=== PATIENT | female | born 1955 | race Caucasian/White ===

== ENCOUNTER 2019-08-09 15:23 | Outpatient (CLI) | payer MEDICARE, SELFPAY ==
--- NOTE | ~2019-08-09 | MM_ITS ---
EXAMINATION: MM screening [facility] BI w marc HISTORY: Screening mammogram TECHNIQUE: Craniocaudal and mediolateral oblique 3-D tomosynthesis images were obtained and synthetic 2-D images were generated. CAD analysis was submitted and interpreted. COMPARISON: 05/26/2018, 09/14/2014 BREAST PARENCHYMAL COMPOSITION: The breasts are almost entirely fatty. FINDINGS: Scattered benign-appearing calcifications are present. There is no evidence of suspicious m ass, calcification, or architectural distortion to suggest malignancy in either breast. There has bee n no suspicious interval change. IMPRESSION: 1. No mammographic evidence of malignancy. 2. Recommend routine screening mammography in one year. BI-RADS Category 2: Benign finding(s). Reviewed, dictated and finalized at location A.
== END 2019-08-09 15:24 | disposition home or self-care (01) ==
LOC: ANHIMG 15:28
PROVIDERS: PCP Internal Medicine; Visit Provider Internal Medicine
DX: Z12.31 Encounter for screening mammogram for malignant neoplasm of breast (principal)
CPT/HCPCS: 77063; 77067

== ENCOUNTER 2020-05-28 08:11 | Outpatient (CLI) | payer MEDICARE, SELFPAY ==
[2020-05-28 08:42] LABS: Basophils Percent Auto 0.5 % (0.2-1.2); Eosinophils Absolute Auto 0.2 K/mm3 (0-0.3); Eosinophils Percent Auto 2.3 % (0-4.4); Hematocrit 44.6 % (37.0-47.0); Hemoglobin 14.5 g/dL (12.0-15.0); Immature Granulocyte Absolute 0.03 K/mm3 (0.00-0.031); Immature Granulocyte Percent A 0.4 % (0-0.5); Lymphocytes Absolute Auto 2.04 K/mm3 (0.9-3.2); Lymphocytes Percent Auto 23.8 % (18.3-44.2); Mean Corpuscular HGB Conc 32.5 g/dl (32-36); Mean Corpuscular Hemoglobin 28.7 pg (26-34); Mean Corpuscular Volume 88.1 fl (80-100); Mean Platelet Volume 10.9 fl (7.4-10.4); Monocytes Absolute Auto 0.6 K/mm3 (0.1-0.6); Monocytes Percent Auto 7.5 % (2.6-8.5); Neutrophils Absolute Auto 5.6 K/mm3 (1.3-6.7); Neutrophils Percent Auto 65.5 % (45.5-73.1); Platelet Count Result 285 k/mm3 (150-375); Red Blood Count 5.06 M/mm3 (4.2-5.4); Red Cell Distribution Width 13.8 % (11.5-14.5); White Blood Count 8.6 K/mm3 (4.5-10.0)
[2020-05-28 08:58] LABS: Alanine Aminotransferase 34 U/L (4-35); Alkaline Phosphatase 100 U/L (38-126); Anion Gap 9 mmol/L (8-16); Aspartate Amino Transferase 36 U/L (14-36); Bilirubin,Total 0.8 mg/dL (0.2-1.3); Blood Urea Nitrogen 22 mg/dL (7-17); Calcium 9.5 mg/dL (8.4-10.2); Carbon Dioxide 32 mmol/L (22-30); Chloride 99 mmol/L (98-107); Estimated Glomerular Filt Rate > 60; Glucose 126 mg/dL (65-105); Potassium 3.6 mmol/L (3.4-5.0); Sodium 140 mmol/L (137-145)
[2020-05-28 09:26] LABS: Creatinine Urine 220.9 mg/dL
[2020-05-28 09:31] LABS: MALB Creatinine Ratio 5.4 mg/g (0-30); Microalbumin Urine Random 11.9 mg/L (0-16.7)
[2020-05-28 09:59] LABS: Hemoglobin A1C 6.2 % (<5.7)
== END 2020-05-28 08:12 | disposition home or self-care (01) ==
PROVIDERS: PCP Internal Medicine; Visit Provider Internal Medicine
DX: E11.51 Type 2 diabetes mellitus with diabetic peripheral angiopathy without gangrene (principal); E11.65 Type 2 diabetes mellitus with hyperglycemia; E78.5 Hyperlipidemia, unspecified; R79.89 Other specified abnormal findings of blood chemistry
CPT/HCPCS: 36415; 80053; 82043; 83036; 85025

== ENCOUNTER 2020-10-24 15:09 | Outpatient (CLI) | payer MEDICARE, SELFPAY ==
--- NOTE | ~2020-10-24 | MM_ITS ---
EXAMINATION: MM screening [facility] BI w [facility] HISTORY: Screening mammogram TECHNIQUE: Craniocaudal and mediolateral oblique 3-D tomosynthesis images were obtained and synthetic 2-D images were generated. CAD analysis was submitted and interpreted. COMPARISON: 08/09/2019, 05/26/2018, 09/14/2014 bilateral digital screening mammogram examinations BREAST PARENCHYMAL COMPOSITION: There are scattered areas of fibroglandular density. FINDINGS: Bilateral benign calcifications. No stable upper outer quadrant right intramammary lymph no de. There is no evidence of suspicious mass, calcification, or architectural distortion to suggest ma lignancy in either breast. There has been no suspicious interval change. IMPRESSION: 1. No mammographic evidence of malignancy. 2. Recommend routine screening mammography in one year. BI-RADS Category 2: Benign finding(s). Reviewed, dictated and finalized at location A.
== END 2020-10-24 15:10 | disposition home or self-care (01) ==
LOC: ANHIMG 15:11
PROVIDERS: PCP Internal Medicine; Visit Provider Internal Medicine
DX: Z12.31 Encounter for screening mammogram for malignant neoplasm of breast (principal)
CPT/HCPCS: 77063; 77067

== ENCOUNTER 2021-06-23 15:19 | Inpatient (IN) | payer MEDICARE, SELFPAY ==
[2021-06-23] VITALS (31 sets, daily range): BP systolic 106–150; BP diastolic 67–96; PULSE 89–112; RESP 16–30; TEMP 36.2; O2SAT 91–100
--- NOTE | ~2021-06-23 | CT_ITS ---
EXAMINATION: CT brain wo con INDICATION: Left lower limb weakness COMPARISON: 10/14/2018 TECHNIQUE: Standard unenhanced head CT. The dose-length product (DLP) was 832.33 mGy-cm. The mA was a djusted according to patient size. Iterative reconstruction technique was employed. FINDINGS: There is no acute intraparenchymal hemorrhage. No evidence of mass lesion. No evidence of a cute infarction. There are old infarcts of the bilateral basal ganglia, bilateral thalami, posterior limb of the right internal capsule, and the left cerebellum There is extensive periventricular and koch bcortical hypodensity probably related to small vessel ischemic disease. There is mild prominence of the sulci and ventricles related to cerebral atrophy. Intracranial calcified cerebral atherosclerosis is noted. There are no extra-axial collections. There is no mass effect or midline shift. Changes in the globes are likely from ocular lens surgery. The visualized sinuses and mastoid air cells are wel l aerated. IMPRESSION: 1. Areas of prior infarction without acute intracranial abnormality. 2. Age related findings. Reviewed, dictated and finalized at location F. USION OPERATOR
--- NOTE | ~2021-06-23 | XR_ITS ---
EXAMINATION: XR hip LT min 3V w AP pelvis EXAM DATE: 06/25/2021 13:12 INDICATION: Left hip pain, blood clot. TECHNIQUE: Left hip frontal, crosstable lateral and 'frog-leg' projections for interpretation. Fronta l projection pelvis. There is no prior study for comparison. FINDINGS: Smooth left hip femoral head contour, no radiographic evidence of avascular necrosis. Ther e is mild symmetric bilateral hip primary osteoarthritis. There are no acute fractures or dislocation s identified. There is no subcutaneous gas. Pelvic calcifications which are most likely phleboliths . There are no radiopaque foreign bodies. IMPRESSION: Mild bilateral hip osteoarthritis. Reviewed, dictated and finalized at location A. NOLOGY METHODOLOGY CONSULTANT
--- NOTE | ~2021-06-23 | XR_ITS ---
EXAMINATION: XR chest 1V portable INDICATION: Weakness and lower limb edema TECHNIQUE: Portable AP chest at 1816 hours COMPARISON: 12/27/2018 FINDINGS: The lungs are free of acute opacities. There is no pleural effusion or pneumothorax. Mild c hronic elevation of the right hemidiaphragm is noted. The cardiomediastinal silhouette is stable. IMPRESSION: 1. No acute cardiopulmonary abnormality. Reviewed, dictated and finalized at location F. EWATER ANALYST
--- NOTE | ~2021-06-23 | US_ITS ---
US renal BI 06/25/2021 10:25 Procedure: Realtime transabdominal ultrasound of the kidneys and bladder. Indication: Acute renal insufficiency Comparison: No prior studies for comparison. Findings: Renal echotexture is normal bilaterally without hydronephrosis, contour deforming mass or r enal calculus. The right kidney measures 10.8 cm and left kidney measures 11.4 cm. Bladder within no rmal limits. Impression: 1: Unremarkable renal ultrasound. No stones, masses or hydronephrosis. Reviewed, dictated and finalized at location B. CT ORIENTED PROGRAMMER Impression: 1: Unremarkable renal ultrasound. No stones, masses or hydronephrosis.
--- NOTE | ~2021-06-23 | CT_ITS ---
EXAMINATION: CTA [facility] DATE: 06/23/2021 18:29 INDICATION: Swelling and color change of the left lower extremity TECHNIQUE: Computed tomographic angiography (CTA) of the left lower extremity was performed with 230 mL Omnipaque-350 intravenous contrast. The dose-length product (DLP) was 1200.83 mGy-cm. Maximum inte nsity projection 3D-reconstructions of the arteries were created by the technologist on a separate The [employer] rkstation. Automated exposure control and iterative reconstruction technique were employed. COMPARISON: None. FINDINGS: PELVIC VASCULATURE: Unremarkable RIGHT LOWER EXTREMITY VASCULATURE: Unremarkable. Although diminutive, there is a three-vessel runoff at the ankle. Finding likely relate s to contrast bolus timing. ADDITIONAL FINDINGS: No pathologically enlarged pelvic lymph nodes are identified. There are phleboliths of the pelvis. Th ere is moderate tricompartmental osteoarthritis of the knee. Mild to moderate osteoarthritis is noted in the ankle and midfoot. IMPRESSION: 1. Unremarkable left lower extremity CTA. Reviewed, dictated and finalized at location F. OR CLINICAL DATA ANALYST
--- NOTE | ~2021-06-23 | US_ITS ---
EXAMINATION:US venous doppler LE LT INDICATION:Left leg swelling and discoloration TECHNIQUE: Multiple grayscale, color flow and Doppler images of the left lower extremity deep venous systems were obtained and reviewed. COMPARISON:12/21/2018 FINDINGS: There is extensive deep venous thrombosis in the left lower extremity veins from the common femoral through the posterior tibial veins. IMPRESSION: 1: Extensive left lower extremity deep venous thrombosis. Dr. Carlos Tirado discussed with Dr. Devante MD at 06/24/2021 08:24 TREASURER. Reviewed, dictated and finalized at location B. SURER IMPRESSION: 1: Extensive left lower extremity deep venous thrombosis. Dr. Carlos Tirado discussed with Dr. Deavnte MD at 06/24/2021 08:24 TREASURER.
[2021-06-23 16:24] LABS: Hematocrit 45.7 % (37.0-47.0); Hemoglobin 14.8 g/dL (12.0-15.0); Mean Corpuscular HGB Conc 32.4 g/dl (32-36); Mean Corpuscular Hemoglobin 29.4 pg (26-34); Mean Corpuscular Volume 90.7 fl (80-100); Mean Platelet Volume 11.4 fl (7.4-10.4); Platelet Count Result 227 k/mm3 (150-375); Red Blood Count 5.04 M/mm3 (4.2-5.4); Red Cell Distribution Width 15.6 % (11.5-14.5); White Blood Count 19.5 K/mm3 (4.5-10.0)
[2021-06-23 16:33] LABS: Alanine Aminotransferase 28 U/L (4-35); Albumin Level 4.6 g/dL (3.5-5.1); Alkaline Phosphatase 130 U/L (38-126); Anion Gap 16 mmol/L (8-16); Aspartate Amino Transferase 35 U/L (14-36); Bilirubin,Total 1.1 mg/dL (0.2-1.3); Blood Urea Nitrogen 24 mg/dL (7-17); Calcium 9.7 mg/dL (8.4-10.2); Carbon Dioxide 23 mmol/L (22-30); Chloride 100 mmol/L (98-107); Estimated CRCL calculation 35 ml/min; Estimated Glomerular Filt Rate 32; Glucose 231 mg/dL (65-110); Potassium 4.1 mmol/L (3.4-5.0); Sodium 139 mmol/L (137-145)
[2021-06-23 16:37] LABS: INR 1.2; Prothrombin Time 14.9 Seconds (11.1-14.7)
[2021-06-23 16:38] LABS: Partial Thromboplastin Time 29.2 SECONDS (22.3-36.8)
--- NOTE | 2021-06-23 16:58 | ED.GENADULT ---
HPI - General Adult General Chief complaint: Altered Mental Status <Sukhwinder Cloud MD - Last Filed: 06/28/21 08:18> Stated complaint: AMS, Diff breathing <Sukhwinder Cloud MD - Last Filed: 06/28/21 08:18> Time Seen by Provider: 06/23/21 15:27 <Sukhwinder Cloud MD - Last Filed: 06/28/21 08:18> History of Present Illness HPI narrative: Patient is a 65-year-old female who presents ER with weakness and leg swelling. Patient reports that she has had increased swelling to her left leg since yesterday morning. It has become purple. There is no pain. She has difficulty bearing weight due to its size and discomfort. No numbness or tingling. Denies history of clots. Patient with strong pulses within the foot. Patient did have a fall onto the ground due to her weakness. She did not strike her head or lose consciousness. Brother present reports patient has had chronic confusion due to multiple strokes in the past. <Sukhwinder Cloud MD - Last Filed: 06/28/21 08:18> Related Data Home medications: Home Medications Medication Instructions Recorded Confirmed aspirin 81 mg tablet,delayed 81 mg PO DAILY 04/27/19 06/25/21 release lancets #50 each 04/27/19 06/25/21 calcium carbonate 600 mg-vitamin 600 cap PO DAILY 11/30/19 06/25/21 D3 62.5 mcg (2,500 unit) capsule atorvastatin [Lipitor] 80 mg PO DAILY 06/25/21 06/25/21 metformin 1,000 mg PO DAILY 06/25/21 06/25/21 mirabegron [Myrbetriq] 25 mg PO DAILY 06/25/21 06/25/21 semaglutide [Rybelsus] 7 mg PO DAILY 06/25/21 06/25/21 <Sukhwinder Cloud MD - Last Filed: 06/28/21 08:18> Allergies/adverse reactions: Allergies Allergy/AdvReac Type Severity Reaction Status Date / Time No Known Allergies Allergy Verified 03/20/21 10:36 <Sukhwinder Cloud MD - Last Filed: 06/28/21 08:18> Review of Systems Review of Systems: All systems reviewed & are unremarkable except as noted in HPI and below <Sukhwinder lCoud MD - Last Filed: 06/28/21 08:18> Constitutional: Constitutional: Denies chills, Denies fever(s) and Reports weakness <Sukhwinder Cloud MD - Last Filed: 06/28/21 08:18> ENT: Denies nasal congestion and Denies sore throat <Sukhwinder Cloud MD - Last Filed: 06/28/21 08:18> Cardiovascular: Cardiovascular: Denies chest pain, Denies rapid heart rate and Denies radiating jaw, neck or arm pain <Sukhwinder Cloud MD - Last Filed: 06/28/21 08:18> Respiratory: Respiratory: Denies cough, Denies dyspnea and Denies wheezing <Sukhwinder Cloud MD - Last Filed: 06/28/21 08:18> Gastrointestinal: Gastrointestinal: Denies abdominal pain, Denies nausea and Denies vomiting <Sukhwinder Cloud MD - Last Filed: 06/28/21 08:18> Musculoskeletal: Musculoskeletal: Denies back pain, Denies arthralgias and Denies muscle cramps <Sukhwinder Cloud MD - Last Filed: 06/28/21 08:18> Comments: LLE swelling <Sukhwinder Cloud MD - Last Filed: 06/28/21 08:18> Neurologic: Denies headache(s), Denies focal weakness, Denies numbness and Reports weakness <Sukhwinder Cloud MD - Last Filed: 06/28/21 08:18> PMFSH Past Medical History Medical History: Medical History (Updated 06/25/21 @ 10:57 by Pino Tobin MD) Cerebrovascular accident (CVA) due to embolism of cerebral artery Depression Hypertension Neuropathy PVD (peripheral vascular disease) Severe obstructive sleep apnea Type 2 diabetes mellitus <Sukhwinder Cloud MD - Last Filed: 06/28/21 08:18> Surgical History Surgical History: Surgical History (Updated 06/23/21 @ 19:02 by Sukhwinder Cloud MD) History of hysterectomy <Sukhwinder Cloud MD - Last Filed: 06/28/21 08:18> Family History Family History: Family History Mother Diabetes mellitus Family history of malignant neoplasm Other Family history of obesity <Sukhwinder Cloud MD - Last Filed: 06/28/21 08:18> Social History Social History:
[2021-06-23] MEDS: SODIUM CHLORIDE 0.9% IV 1,000 ML 999 ML IV CONT (17:00)
[2021-06-23 17:06] LABS: Band Neutrophils Percent 5 % (0-6); Lymphocytes Absolute Manual 0.97 K/mm3 (1.1-4.5); Monocytes Absolute Manual 1.95 K/mm3 (0.1-0.90); Monocytes Percent Manual 10 % (3-9); Neutrophils Absolute Manual 16.57 K/mm3 (1.7-7.2); Neutrophils Percent Manual 80 % (46-73); Total Cells Counted 100
[2021-06-23 17:07] LABS: Anisocytosis 2+ (NORMAL); Platelet Estimate Adequate (Adequate)
[2021-06-23 17:39] LABS: Add Urine Microscopic? YES; Amorphous Sediment Urine Few; Appearance Urine Cloudy (Clear); Bacteria Urine 2+ /hpf; Bilirubin Urine Negative (Negative); Blood Urine 1+ (Negative); Color Urine Amber (Yellow); Glucose Urine UA Negative (Negative); Ketones Urine Trace mg/dL (Negative); Leukocyte Esterase Ur 1+ LEU/UL (Negative); Mucus Urine Rare /lpf; Nitrate Urine Negative (Negative); Protein Urine 1+ mg/dL (Negative); RBC Urine 21-50 /hpf (0-2); Specific Grav Ur 1.027 (1.001-1.035); Squamous Epithelial Cell Urine Many /hpf (Few); WBC Urine 0-3 /hpf
[2021-06-23 17:49] LABS: Creatine Kinase 109 U/L (30-135); D Dimer > 20.00 ug/mL (<0.48)
[2021-06-23] MEDS: HEPARIN SODIUM 5,000 UNITS/ML VIAL 5500 UNITS IV PUSH (19:42)
[2021-06-23] MEDS: HEPARIN SOD/D5W 100 UNITS/ML 25,000 UNITS/250 ML BAG 13 UNITS IV CONT (19:45)
--- NOTE | 2021-06-23 20:33 | PC.NURSE ---
Vicky with [facility] called...there are no beds available at this time. Will put patient on waitlist and still reaching out to Vascular Surgery...will call back when they reach doctor.
[2021-06-23 20:40] LABS: SARS-CoV-2 RNA PCR Negative
--- NOTE | 2021-06-23 21:07 | ECG_ITS ---
Measurements Intervals [place] Rate: 96 P: 47 FL: 151 QRS: 9 QRSD: 91 T: 59 QT: 374 QTc: 474 Interpretive Statements SINUS RHYTHM CONSIDER INFERIOR INFARCT, AGE INDETERMINATE BORDERLINE ST-T WAVE ABNORMALITY- HIGH LATERAL LEADS ABNORMAL ECG Electronically Signed On 06-24-2021 6:22:52 BOAT RIGGER by Soy Vuong D.O.
--- NOTE | 2021-06-23 21:24 | PM.IMHP ---
H&P: HPI History of Present Illness Date/Time: 06/23/21 21:24 Chief Complaint: LEFT LEG SWELLING PMFSH Past Medical History Medical History (Updated 06/23/21 @ 19:59 by Sukhwinder Cloud MD) Cerebrovascular accident (CVA) due to embolism of cerebral artery Depression Hypertension Neuropathy PVD (peripheral vascular disease) Severe obstructive sleep apnea Type 2 diabetes mellitus Surgical History Surgical History (Updated 06/23/21 @ 19:02 by Sukhwinder Cloud MD) History of hysterectomy Family History Family History Mother Diabetes mellitus Family history of malignant neoplasm Other Family history of obesity Social History Social History (Updated 03/20/21 @ 10:36 by Chery Kelley CNA) Smoking status: Never smoker Second hand tobacco smoke exposure: No Alcohol intake: never Substance use: never Substance use type: does not use Meds Home Medications and Allergies Home Medications Medication Instructions Recorded Confirmed Type aspirin 81 mg tablet,delayed 81 mg PO DAILY 04/27/19 03/20/21 History release lancets #50 each 04/27/19 03/20/21 History calcium carbonate 600 mg-vitamin cap PO 11/30/19 03/20/21 History D3 62.5 mcg (2,500 unit) capsule metformin 500 mg tablet See Rx Instructions .ROUTE 02/25/21 03/20/21 Rx .COMPLEX #180 tablet semaglutide 7 mg tablet See Rx Instructions .ROUTE 04/01/21 Rx .COMPLEX #90 tablet blood sugar diagnostic #100 ea 04/08/21 Rx atorvastatin 80 mg tablet See Rx Instructions .ROUTE 04/23/21 Rx .COMPLEX #90 tablet mirabegron 25 mg tablet,extended See Rx Instructions .ROUTE 05/09/21 Rx release 24 hr .COMPLEX #90 tablet Allergies Allergy/AdvReac Type Severity Reaction Status Date / Time No Known Allergies Allergy Verified 03/20/21 10:36 Vital Signs Vital Signs - 24 hr 06/23/21 15:23 06/23/21 15:37 06/23/21 15:45 Temperature 97.2 F L Pulse Rate 112 H 105 H 101 H Respiratory Rate 20 30 H 25 H Blood Pressure 121/96 H Pulse Oximetry 100 100 100 06/23/21 15:46 06/23/21 16:00 06/23/21 16:01 Temperature Pulse Rate 100 96 94 Respiratory Rate 20 23 H 17 Blood Pressure 109/77 114/67 Pulse Oximetry 100 100 100 06/23/21 16:15 06/23/21 16:16 06/23/21 16:30 Temperature Pulse Rate 93 93 93 Respiratory Rate 22 H 20 20 Blood Pressure 106/85 119/87 Pulse Oximetry 100 100 06/23/21 16:31 06/23/21 16:45 06/23/21 16:46 Temperature Pulse Rate 95 93 92 Respiratory Rate 21 H 22 H 18 Blood Pressure 120/78 Pulse Oximetry 100 99 100 06/23/21 17:00 06/23/21 17:01 06/23/21 17:15 Temperature Pulse Rate 93 92 90 Respiratory Rate 20 26 H 25 H Blood Pressure 135/81 Pulse Oximetry 100 100 06/23/21 17:16 06/23/21 17:30 06/23/21 17:31 Temperature Pulse Rate 95 89 94 Respiratory Rate 20 23 H 22 H Blood Pressure 127/67 131/82 Pulse Oximetry 100 91 100 06/23/21 18:21 06/23/21 18:22 06/23/21 18:30 Temperature Pulse Rate 94 96 Respiratory Rate 20 21 H Blood Pressure 125/91 H Pulse Oximetry 100 100 100 06/23/21 18:31 06/23/21 18:45 06/23/21 18:46 Temperature Pulse Rate 94 95 95 Respiratory Rate 22 H 21 H 21 H Blood Pressure 147/84 H 150/84 H Pulse Oximetry 100 98 99 06/23/21 19:00 06/23/21 19:01 06/23/21 19:15 Temperature Pulse Rate 97 97 104 H Respiratory Rate 21 H 19 25 H Blood Pressure 135/85 Pulse Oximetry 97 98 92 06/23/21 19:16 06/23/21 19:27 Temperature Pulse Rate 100 101 H Respiratory Rate 18 16 Blood Pressure 137/77 137/77 Pulse Oximetry 97 100 H&P: Results Labs Labs: Short CBC 06/23/21 Range/Units 16:12 WBC 19.5 H (4.5-10.0) K/mm3 Hgb 14.8 (12.0-15.0) g/dL Hct 45.7 (37.0-47.0) % Plt Count 227 (150-375) k/mm3 BMP 06/23/21 16:12 Sodium 139 Potassium 4.1 Chloride 100 Carbon Dioxide 23 BUN 24 H Creatinine 1.60 H Glucose 231 H
--- NOTE | 2021-06-23 21:39 | PC.NURSE ---
PATIENT HAS BEEN ACCEPTED AT BOTH [facility] AND [facility]. Both facilities are currently at capacity. Patient is on waitlist at both. [facility] is waiting for additional information/updates on condition before acceptance or placing on waitlist.
--- NOTE | 2021-06-23 21:44 | PC.NURSE ---
6 kaylee wrap left leg from feet to hip left leg elevated pedal pules + post kaylee wrap. large amount of vomiting bedding changed
[2021-06-23 22:10] LABS: Troponin I 0.014 ng/mL (0.000-0.034)
[2021-06-23] MEDS: SODIUM CHLORIDE 0.9% IV 1,000 ML 125 ML IV CONT (23:33)
[2021-06-24] VITALS (8 sets, daily range): BP systolic 119–143; BP diastolic 56–93; PULSE 82–95; RESP 12–20; TEMP 36.3–36.6; O2SAT 97–100; BMI 32.1
--- NOTE | 2021-06-24 01:38 | PC.NURSE ---
pt alert and oriented x 3, bedding and adult diaper dry
[2021-06-24 02:43] LABS: Partial Thromboplastin Time > 200.0 SECONDS (22.3-36.8)
--- NOTE | 2021-06-24 02:48 | PC.NURSE ---
ALEXIA TAYLOR - HOLD HEPARIN X 6 HOURS AND THEN REDRAW PTT @ 0845.
--- NOTE | 2021-06-24 02:51 | PC.NURSE ---
hep drip stopped
--- NOTE | 2021-06-24 05:51 | PC.NURSE ---
pt incontinent urine adult diaper changed bedding changed c/o some pain left pain meds offered declined
[2021-06-24 08:57] LABS: Basophils Absolute Auto 0.1 K/mm3 (0.0-0.1); Basophils Percent Auto 0.4 % (0.2-1.2); Hematocrit 38.9 % (37.0-47.0); Hemoglobin 12.8 g/dL (12.0-15.0); Immature Granulocyte Absolute 0.08 K/mm3 (0.00-0.031); Immature Granulocyte Percent A 0.6 % (0-0.5); Lymphocytes Absolute Auto 1.59 K/mm3 (0.9-3.2); Lymphocytes Percent Auto 11.1 % (18.3-44.2); Mean Corpuscular HGB Conc 32.9 g/dl (32-36); Mean Corpuscular Hemoglobin 28.8 pg (26-34); Mean Corpuscular Volume 87.6 fl (80-100); Mean Platelet Volume 11.9 fl (7.4-10.4); Monocytes Absolute Auto 1.1 K/mm3 (0.1-0.6); Monocytes Percent Auto 7.8 % (2.6-8.5); Neutrophils Absolute Auto 11.5 K/mm3 (1.3-6.7); Neutrophils Percent Auto 80.1 % (45.5-73.1); Platelet Count Result 198 k/mm3 (150-375); Red Blood Count 4.44 M/mm3 (4.2-5.4); Red Cell Distribution Width 15.9 % (11.5-14.5); White Blood Count 14.3 K/mm3 (4.5-10.0)
--- NOTE | 2021-06-24 09:28 | PC.NURSE ---
no bed at [facility]
[2021-06-24 10:03] LABS: Partial Thromboplastin Time 34.3 SECONDS (22.3-36.8)
[2021-06-24] MEDS: SODIUM CHLORIDE 0.9% IV 1,000 ML 125 ML IV CONT ×2 (10:30→20:15)
[2021-06-24] MEDS: HEPARIN SODIUM 5,000 UNITS/ML VIAL 5500 UNITS IV PUSH (10:34)
--- NOTE | 2021-06-24 12:46 | PC.NURSE ---
spoke with patient's brother, Omar Sanderson, update given. [phone] brother's number. would like to be contacted with plan of care when available
--- NOTE | 2021-06-24 15:43 | PM.IMPN ---
Progress Note: A&P Assessment and Plan (1) Phlegmasia cerulea dolens of left lower extremity: Code(s): I80.202 - Phlebitis and thrombophlebitis of unspecified deep vessels of left lower extremity Status: Acute Assessment and Plan: Patient presents with left lower extremity edema and discoloration. CTA of the left lower extremity showed no acute findings. Left lower extremity venous Doppler showed extensive DVT. No obvious risk factors. Patient was started on heparin drip. Case was discussed with vascular surgery and patient has been accepted at 2 facilities but we are awaiting bed availability. WBC better adn felt related to demargination then from acute infection. Continue heparin drip. Continue supportive care. Strict bedrest. Continue to monitor. Follow HH. (2) MEREDITH (acute kidney injury): Code(s): N17.9 - Acute kidney failure, unspecified Status: Acute Assessment and Plan: BUN 24 and creatinine 1.6 on admission. Normal baseline renal function. She is not on diuretics at home. She has received contrast since admission. TCK normal. Currently on IV fluids. Will repeat renal function. Cr 1.5 now. Will continue to monitor. Check renal US. (3) Severe obstructive sleep apnea: Code(s): G47.33 - Obstructive sleep apnea (adult) (pediatric) Status: Acute Assessment and Plan: Stable. Continue CPAP at night and with naps. (4) PVD (peripheral vascular disease): Code(s): I73.9 - Peripheral vascular disease, unspecified Status: Acute Assessment and Plan: Left lower extremity CTA showed no significant arterial disease. Continue to follow. Resume aspirin and statin. (5) Cerebrovascular accident (CVA) due to embolism of cerebral artery: Code(s): I63.40 - Cerebral infarction due to embolism of unspecified cerebral artery Status: Acute Assessment and Plan: Patient has a history of CVA. CT of the brain performed here related to the left lower extremity weakness and this shows areas of prior infarct without acute findings. Continue aspirin and Lipitor. (6) Type 2 diabetes mellitus: Qualifiers: Diabetes mellitus complication status: without complication Diabetes mellitus intermediate manager insulin use: without alf use Qualified Code(s): E11.9 - Type 2 diabetes mellitus without complications Code(s): E11.9 - Type 2 diabetes mellitus without complications Status: Acute Assessment and Plan: The patient's blood glucose was reviewed on 06/24 not many values to review. Will start AccuCheks covering with sliding scale. Hypoglycemia protocol will be available as needed. Continue to hold semaglutide Subjective Date/time seen: 06/24/21 15:43 Interval history: 65yo female with hx of CVA, DM, HTN and ESTHELA here for LLE edema and found to have extensive DVT. Patient denies CP or SOB. Left leg edema noted about 2 days ago. UTD on colonoscopy and mammograms (both done last year). No prolonged bedrest or recent surgeries. No hx of VTE. No pleuritc chest pain. Exam Narrative: AF 97.2 119/77 95 12 97% ra Gen - NARD Chest - CTA bilaterally, nml RR CV - RRR S1/S2 Abd - Soft, NT/ND, Positive BS Ext - nonpitting extensive LLE edema with dusky distal LE with purplish discoloration. Left foot is cold with cap refill 4-5sec but 2+ DP pulse to the left foot. Neuro - Alert and oriented x3 (not the Radha name). Psych - Nml mood but odd affect Skin - As above otherwise warm and dry Objective Data Vital Signs Vital Signs: Vital Signs - 24 hr 06/23/21 15:45 06/23/21 15:46 06/23/21 16:00 Pulse Rate 101 H 100 96 Respiratory Rate 25 H 20 23 H Blood Pressure 109/77 Pulse Oximetry 100 100 100 06/23/21 16:01 06/23/21 16:15 06/23/21 16:16 Pulse Rate 94 93 93 Respiratory Rate 17 22 H 20 Blood Pressure 114/67 106/85 Pulse Oximetry 100 100 06/23/21 16:30 06/23/21 16:31 06/23/21 16:45 Pulse Rate
[2021-06-24 17:00] LABS: Albumin Level 3.8 g/dL (3.5-5.1); Anion Gap 7 mmol/L (8-16); Blood Urea Nitrogen 32 mg/dL (7-17); Calcium 8.6 mg/dL (8.4-10.2); Carbon Dioxide 26 mmol/L (22-30); Chloride 104 mmol/L (98-107); Estimated CRCL calculation 37 ml/min; Estimated Glomerular Filt Rate 35; Glucose 154 mg/dL (65-110); Phosphorus 3.9 mg/dL (2.5-4.5); Potassium 3.9 mmol/L (3.4-5.0); Sodium 137 mmol/L (137-145)
[2021-06-24 17:21] LABS: Troponin I 0.062 ng/mL (0.000-0.034)
[2021-06-24 17:25] LABS: Partial Thromboplastin Time > 200.0 SECONDS (22.3-36.8)
--- NOTE | 2021-06-24 17:40 | ECG_ITS ---
Measurements Intervals [place] Rate: 84 P: 46 CA: 158 QRS: 7 QRSD: 82 T: 116 QT: 363 QTc: 431 Interpretive Statements SINUS RHYTHM CONSIDER INFERIOR INFARCT, AGE INDETERMINATE BORDERLINE ST-T WAVE ABNORMALITY- LAT/HIGH LAT LEADS BASELINE ARTIFACT- V1, V3 ABNORMAL ECG Electronically Signed On 06-24-2021 21:07:22 BLACKSMITH HELPER by Soy Vuong D.O.
[2021-06-24] MEDS: ASPIRIN 81 MG CHEWABLE TABLET PO (17:41)
[2021-06-24 17:49] LABS: Glucose Point of Care 134 mg/dl (65-105)
--- NOTE | 2021-06-24 20:36 | ADMGEN ---
This patient, Chio Anand, was admitted to IMU Room 207-01. Patient/family oriented to hospital policies and general routines including ID bracelet, bed and alarms, visiting hours, pain management, procedures, bathroom and other care routines, personal items, smoking policy, room service/diet, and visiting hours. Information on how to activate the Rapid Response Team has been discussed. Patient/Family are encouraged to report perceived risks to care and to ask questions if they do not understand what they are told or what they should do.
[2021-06-24 21:01] LABS: Troponin I 0.053 ng/mL (0.000-0.034)
[2021-06-24 21:08] LABS: Glucose Point of Care 166 mg/dl (65-105)
--- NOTE | 2021-06-24 21:39 | PCRCNOTE ---
RT asked Pt. about CPAP and pt. refused the CPAP tonight
[2021-06-24] MEDS: HEPARIN SOD/D5W 100 UNITS/ML 25,000 UNITS/250 ML BAG 14 UNITS IV CONT (22:54)
[2021-06-25] VITALS (13 sets, daily range): BP systolic 126–136; BP diastolic 63–72; PULSE 58–89; RESP 18–20; TEMP 36.4–36.9; O2SAT 97–99
--- NOTE | 2021-06-25 | ECHO_ITS ---
Patient Info Name: Chio Anand Age: 65 years : 1955 Gender: Female Ht: 64 in Wt: 187 lbs BSA: 1.99 m2 HR: 81 bpm BP: 134 / 63 mmHg Heart Rhythm: Sinus Rhythm Technical Quality: Fair Exam Date: 06/25/2021 11:36 AM Exam Location: [facility] Patient Status: Inpatient Admit Date: 06/24/2021 Staff Ordering Physician: Pino Tobin MD Forming Machine Operator: Milena Cui RDCS Attending Provider: Vick Whitt MD Exam Type: CA echo doppler color flow Study Info Indications - eleveted trop, dvt Complete two-dimensional, color flow and Doppler transthoracic echocardiogram is performed. Summary 1. Complete two-dimensional, color flow and Doppler transthoracic echocardiogram is performed. 2. Left ventricular chamber dimension is normal. 3. Left ventricular systolic function is normal, estimated at 65-70%. 4. There is mildly increased left ventricular wall thickness. 5. The left ventricular diastolic function is grade I diastolic dysfunction. 6. E/e' 6 is not elevated. 7. There is mild aortic valve sclerosis. 8. The mitral valve has moderately calcified annulus. 9. No pulmonary hypertension, estimated pulmonary arterial systolic pressure is 21 mmHg. Left Ventricle E/e' 6 is not elevated. Left ventricular chamber dimension is normal. Left ventricular systolic function is normal, estimated at 65-70%. There is mildly increased left ventricular wall thickness. The left ventricular diastolic function is grade I diastolic dysfunction. Right Ventricle Right ventricular chamber dimension is normal. Right ventricular systolic function is normal. Left Atria Left atrial chamber dimension is normal. Right Atria Right atrial chamber dimension is normal. Aortic Valve The aortic valve is trileaflet. There is mild aortic valve sclerosis. There is no aortic valve stenosis. There is no aortic valve regurgitation. Pulmonic Valve There is no pulmonic regurgitation. Mitral Valve The mitral valve has moderately calcified annulus. There is no mitral valve stenosis. There is no mitral valve regurgitation. Tricuspid Valve There is no tricuspid valve regurgitation. No pulmonary hypertension, estimated pulmonary arterial systolic pressure is 21 mmHg. Pericardium/Pleural There is no pericardial effusion. Inferior Vena Cava Normal inferior vena cava with >50% collapse upon inspiration consistent with normal right atrial pressure, 5 mmHg. Aorta The aortic root size at the sinus of Valsalva is normal. Left Ventricular Outflow Tract Name Value Normal LVOT 2D LVOT Diameter 2.0 cm LVOT Doppler LVOT Peak Gradient 3 mmHg LVOT Mean Gradient 1 mmHg LVOT VTI 14 cm LVOT VTI/AV VTI Ratio 0.7 LVOT Stroke Volume 45 ml LVOT CO 3.8 l/min LVOT CI 1.9 l/min/m2 Pulmonic Valve Name
[2021-06-25 01:34] LABS: Partial Thromboplastin Time > 200.0 SECONDS (22.3-36.8)
[2021-06-25] MEDS: ASPIRIN 81 MG CHEWABLE TABLET PO (08:07)
[2021-06-25] MEDS: ATORVASTATIN 40 MG TABLET 80 MG PO (08:07)
[2021-06-25 08:08] LABS: Glucose Point of Care 144 mg/dl (65-105)
--- NOTE | 2021-06-25 08:19 | PM.IMPN ---
Progress Note: A&P Assessment and Plan (1) Phlegmasia cerulea dolens of left lower extremity: Code(s): I80.202 - Phlebitis and thrombophlebitis of unspecified deep vessels of left lower extremity Status: Acute Assessment and Plan: Patient presents with left lower extremity edema and discoloration. CTA of the left lower extremity showed no acute findings. Left lower extremity venous Doppler showed extensive DVT. No obvious risk factors. Patient was started on heparin drip. Case was discussed with vascular surgery and patient has been accepted at 2 facilities but we are awaiting bed availability. WBC better again and felt related to demargination then from acute infection. Plt count noted (227K -> 198K -> 149K). Continue heparin drip for now. Continue supportive care. Strict bedrest. Continue to monitor. Follow HH and plt count. Check left hip xray. (2) MEREDITH (acute kidney injury): Code(s): N17.9 - Acute kidney failure, unspecified Status: Acute Assessment and Plan: BUN 24 and creatinine 1.6 on admission. Normal baseline renal function. She is not on diuretics at home. She has received contrast since admission. TCK normal. She remains on IV fluids. Renal US normal. Cr now normal. She is eating and drinking well so will stop IV fluids. Follow (3) Elevated troponin: Code(s): R77.8 - Other specified abnormalities of plasma proteins Status: Acute Assessment and Plan: Trop peaked at 0.062 before trending down. EKG on admission showing borderline ST-T wave changes high lateral leads. Repeat EKG showing similar findings and overall no change from a 2019 EKG. No complains of chest pain or pleuritic symptoms to suggest PE but this is the most likely etiology. Unlikely ACS. Consider related to the MEREDITH as well. Check Echo. (4) Severe obstructive sleep apnea: Code(s): G47.33 - Obstructive sleep apnea (adult) (pediatric) Status: Acute Assessment and Plan: Stable. Continue CPAP at night and with naps. (5) PVD (peripheral vascular disease): Code(s): I73.9 - Peripheral vascular disease, unspecified Status: Acute Assessment and Plan: Left lower extremity CTA showed no significant arterial disease. Continue to follow. Continue aspirin and statin. (6) Cerebrovascular accident (CVA) due to embolism of cerebral artery: Code(s): I63.40 - Cerebral infarction due to embolism of unspecified cerebral artery Status: Acute Assessment and Plan: Patient has a history of CVA. CT of the brain was performed here due to the left lower extremity weakness and this shows areas of prior infarct without acute findings. Continue aspirin and Lipitor. (7) Type 2 diabetes mellitus: Qualifiers: Diabetes mellitus complication status: without complication Diabetes mellitus extermination supervisor insulin use: without extermination supervisor use Qualified Code(s): E11.9 - Type 2 diabetes mellitus without complications Code(s): E11.9 - Type 2 diabetes mellitus without complications Status: Acute Assessment and Plan: A1c 5.5. The patient's blood glucose was reviewed on 06/25. Glucose remains well controlled. Continue AccuCheks covering with sliding scale. Hypoglycemia protocol available as needed. Continue current medications. Continue to hold semaglutide for now. Subjective Date/time seen: 06/25/21 08:19 Interval history: 65yo female with hx of CVA, DM, HTN and ESTHELA here for LLE edema and found to have extensive DVT. Patient states her left leg is numb and still very weak. She denies any chest pain or shortness of breath. No pleuritic chest pain. No back pain. No nausea or vomiting. Eating okay. She did states that she fell prior to admission. Exam Narrative: AF 98.0 134/63 81 18 97% ra Gen - NARD Chest - CTA bilaterally, nml RR CV - RRR S1/S2. Tele showing occasional PVCs. Abd - Soft, NT/ND, Positive BS Ext - nonpitti
[2021-06-25 09:53] LABS: Basophils Absolute Auto 0.1 K/mm3 (0.0-0.1); Basophils Percent Auto 0.7 % (0.2-1.2); Eosinophils Absolute Auto 0.1 K/mm3 (0-0.3); Eosinophils Percent Auto 0.9 % (0-4.4); Hematocrit 35.1 % (37.0-47.0); Hemoglobin 11.9 g/dL (12.0-15.0); Immature Granulocyte Absolute 0.03 K/mm3 (0.00-0.031); Immature Granulocyte Percent A 0.3 % (0-0.5); Lymphocytes Absolute Auto 1.45 K/mm3 (0.9-3.2); Lymphocytes Percent Auto 12.5 % (18.3-44.2); Mean Corpuscular HGB Conc 33.9 g/dl (32-36); Mean Corpuscular Hemoglobin 30.1 pg (26-34); Mean Corpuscular Volume 88.9 fl (80-100); Mean Platelet Volume 12.1 fl (7.4-10.4); Monocytes Absolute Auto 0.9 K/mm3 (0.1-0.6); Monocytes Percent Auto 7.4 % (2.6-8.5); Neutrophils Absolute Auto 9.1 K/mm3 (1.3-6.7); Neutrophils Percent Auto 78.2 % (45.5-73.1); Platelet Count Result 149 k/mm3 (150-375); Red Blood Count 3.95 M/mm3 (4.2-5.4); Red Cell Distribution Width 15.8 % (11.5-14.5); White Blood Count 11.6 K/mm3 (4.5-10.0)
[2021-06-25 10:05] LABS: Albumin Level 3.5 g/dL (3.5-5.1); Anion Gap 12 mmol/L (8-16); Blood Urea Nitrogen 27 mg/dL (7-17); Calcium 8.5 mg/dL (8.4-10.2); Carbon Dioxide 21 mmol/L (22-30); Chloride 103 mmol/L (98-107); Estimated CRCL calculation 51 ml/min; Estimated Glomerular Filt Rate 55; Glucose 139 mg/dL (65-110); Magnesium 1.7 mg/dL (1.6-2.3); Potassium 3.5 mmol/L (3.4-5.0); Sodium 136 mmol/L (137-145)
--- NOTE | 2021-06-25 10:39 | PC.NURSE ---
PTT time for 0845. drawn at 0909. No results found at 1039 so call placed to Lab. Spoke to rep in blood bank who checked result advised was critical and would have lab call. Call made at 1039 to report PTT was critical.
[2021-06-25 10:40] LABS: Partial Thromboplastin Time 190.3 SECONDS (22.3-36.8)
[2021-06-25 11:05] LABS: Hemoglobin A1C 5.5 % (<5.7)
[2021-06-25 12:32] LABS: Glucose Point of Care 154 mg/dl (65-105)
[2021-06-25 16:55] LABS: Glucose Point of Care 145 mg/dl (65-105)
[2021-06-25 19:34] LABS: Partial Thromboplastin Time 94.9 SECONDS (22.3-36.8)
[2021-06-25 20:57] LABS: Glucose Point of Care 152 mg/dl (65-105)
[2021-06-26] VITALS (14 sets, daily range): BP systolic 127–139; BP diastolic 62–93; PULSE 7–86; RESP 18–20; TEMP 36.2–36.6; O2SAT 95–100
[2021-06-26] MEDS: HEPARIN SOD/D5W 100 UNITS/ML 25,000 UNITS/250 ML BAG 10 UNITS IV CONT (00:48)
[2021-06-26 05:18] LABS: Basophils Absolute Auto 0.1 K/mm3 (0.0-0.1); Basophils Percent Auto 0.5 % (0.2-1.2); Eosinophils Absolute Auto 0.2 K/mm3 (0-0.3); Immature Granulocyte Absolute 0.02 K/mm3 (0.00-0.031); Immature Granulocyte Percent A 0.2 % (0-0.5); Lymphocytes Absolute Auto 2.03 K/mm3 (0.9-3.2); Lymphocytes Percent Auto 21.8 % (18.3-44.2); Mean Corpuscular HGB Conc 33.3 g/dl (32-36); Mean Corpuscular Hemoglobin 29.6 pg (26-34); Mean Corpuscular Volume 88.7 fl (80-100); Mean Platelet Volume 11.8 fl (7.4-10.4); Monocytes Absolute Auto 0.7 K/mm3 (0.1-0.6); Monocytes Percent Auto 7.7 % (2.6-8.5); Neutrophils Absolute Auto 6.3 K/mm3 (1.3-6.7); Neutrophils Percent Auto 67.8 % (45.5-73.1); Platelet Count Result 150 k/mm3 (150-375); Red Blood Count 3.72 M/mm3 (4.2-5.4); Red Cell Distribution Width 15.7 % (11.5-14.5); White Blood Count 9.3 K/mm3 (4.5-10.0)
[2021-06-26 05:32] LABS: Anion Gap 7 mmol/L (8-16); Blood Urea Nitrogen 23 mg/dL (7-17); Calcium 8.8 mg/dL (8.4-10.2); Carbon Dioxide 23 mmol/L (22-30); Chloride 105 mmol/L (98-107); Estimated CRCL calculation 63 ml/min; Estimated Glomerular Filt Rate > 60; Glucose 130 mg/dL (65-110); Magnesium 1.8 mg/dL (1.6-2.3); Potassium 3.6 mmol/L (3.4-5.0); Sodium 135 mmol/L (137-145)
[2021-06-26 07:44] LABS: Partial Thromboplastin Time 100.2 SECONDS (22.3-36.8)
[2021-06-26] MEDS: ASPIRIN 81 MG CHEWABLE TABLET PO (08:26)
[2021-06-26] MEDS: ATORVASTATIN 40 MG TABLET 80 MG PO (08:26)
[2021-06-26 08:28] LABS: Glucose Point of Care 130 mg/dl (65-105)
--- NOTE | 2021-06-26 12:16 | PM.IMPN ---
Progress Note: A&P Assessment and Plan (1) Phlegmasia cerulea dolens of left lower extremity: Code(s): I80.202 - Phlebitis and thrombophlebitis of unspecified deep vessels of left lower extremity Status: Acute Assessment and Plan: Patient with an unprovoked DVT LLE. Patient presents with left lower extremity edema and discoloration. CTA of the left lower extremity showed no acute findings. Left lower extremity venous Doppler showed extensive DVT. No obvious risk factors (UTD on colonoscopy and mammograms). Patient was started on heparin drip. Case was discussed with vascular surgery and patient has been accepted at 2 facilities but we are awaiting bed availability. WBC normal now and felt the leukocytosis related to demargination then from acute infection. Plt count dropping (227K -> 198K -> 149K -> 150K) but probably from consumption. Pelvic xray showing no fracture. Clinically and symptomatically better. Continue heparin drip. Continue supportive care. Strict bedrest. Elevated LLE. Continue to monitor. Follow HH and plt count. (2) MEREDITH (acute kidney injury): Code(s): N17.9 - Acute kidney failure, unspecified Status: Acute Assessment and Plan: BUN 24 and creatinine 1.6 on admission. Normal baseline renal function. She is not on diuretics at home. She has received contrast since admission. TCK normal. She was on IV fluids but stopped once Cr improved and when eating and drinking normally. Renal US normal. Cr remains normal. Resolved. Follow. (3) Elevated troponin: Code(s): R77.8 - Other specified abnormalities of plasma proteins Status: Acute Assessment and Plan: Trop peaked at 0.062 before trending down. EKG on admission showing borderline ST-T wave changes high lateral leads. Repeat EKG showing similar findings and overall no change from a 2019 EKG. No complains of chest pain or pleuritic symptoms to suggest PE but this is the most likely etiology. Tele showing probable MAT; related to PE? or electrolyte changes? Unlikely elevated Troponins ACS. Replace potassium and Mag. Consider related to the MEREDITH as well. Continue ASA and Lipitor. Echo showing EF 65-70% with Grade I diastolic dysfunction but normal RA/RV and normal RA pressure: no pulmonary HTN. If she does have PE, probably low clot burden since asymptomatic, not hypoxic and no concerning findings on Echo. Overall, no change in treatment plan. Consider CTA chest before discharge but would treat as if PE. (4) Severe obstructive sleep apnea: Code(s): G47.33 - Obstructive sleep apnea (adult) (pediatric) Status: Acute Assessment and Plan: Stable. Patient refusing CPAP at night. Continue CPAP at night and with naps as patient allows. (5) PVD (peripheral vascular disease): Code(s): I73.9 - Peripheral vascular disease, unspecified Status: Acute Assessment and Plan: Left lower extremity CTA showed no significant arterial disease. Continue to follow. Continue aspirin and statin. (6) Cerebrovascular accident (CVA) due to embolism of cerebral artery: Code(s): I63.40 - Cerebral infarction due to embolism of unspecified cerebral artery Status: Acute Assessment and Plan: Patient has a history of CVA. CT of the brain was performed here due to the left lower extremity weakness and this shows areas of prior infarct without acute findings. Continue aspirin and Lipitor. (7) Type 2 diabetes mellitus: Qualifiers: Diabetes mellitus complication status: without complication Diabetes mellitus regional intermodal truck driver insulin use: without regional intermodal truck driver use Qualified Code(s): E11.9 - Type 2 diabetes mellitus without complications Code(s): E11.9 - Type 2 diabetes mellitus without complications Status: Acute Assessment and Plan: A1c 5.5. The patient's blood glucose was reviewed on 06/26 Glucose remains well controlled. Continue AccuCheks covering with sliding scale.
[2021-06-26 12:47] LABS: Glucose Point of Care 125 mg/dl (65-105)
[2021-06-26] MEDS: POTASSIUM CHLORIDE 20 MEQ TABLET 40 MEQ PO (13:57)
[2021-06-26] MEDS: MAGNESIUM SULF 2 GM/WATER 50ML 2 GM/50 ML BAG IVPB (13:58)
[2021-06-26 15:46] LABS: Glucose Point of Care 126 mg/dl (65-105)
[2021-06-26 20:10] LABS: Glucose Point of Care 144 mg/dl (65-105)
[2021-06-27] VITALS (13 sets, daily range): BP systolic 130–165; BP diastolic 67–93; PULSE 75–95; RESP 16–20; TEMP 36.2–37.2; O2SAT 95–100
[2021-06-27 05:33] LABS: Basophils Percent Auto 0.5 % (0.2-1.2); Eosinophils Absolute Auto 0.2 K/mm3 (0-0.3); Eosinophils Percent Auto 2.8 % (0-4.4); Hematocrit 31.9 % (37.0-47.0); Hemoglobin 10.5 g/dL (12.0-15.0); Immature Granulocyte Absolute 0.03 K/mm3 (0.00-0.031); Immature Granulocyte Percent A 0.4 % (0-0.5); Lymphocytes Absolute Auto 2.04 K/mm3 (0.9-3.2); Lymphocytes Percent Auto 25.7 % (18.3-44.2); Mean Corpuscular HGB Conc 32.9 g/dl (32-36); Mean Corpuscular Hemoglobin 28.7 pg (26-34); Mean Corpuscular Volume 87.2 fl (80-100); Mean Platelet Volume 11.9 fl (7.4-10.4); Monocytes Absolute Auto 0.7 K/mm3 (0.1-0.6); Monocytes Percent Auto 8.4 % (2.6-8.5); Neutrophils Absolute Auto 4.9 K/mm3 (1.3-6.7); Neutrophils Percent Auto 62.2 % (45.5-73.1); Platelet Count Result 168 k/mm3 (150-375); Red Blood Count 3.66 M/mm3 (4.2-5.4); Red Cell Distribution Width 15.4 % (11.5-14.5); White Blood Count 7.9 K/mm3 (4.5-10.0)
[2021-06-27 05:50] LABS: Anion Gap 6 mmol/L (8-16); Blood Urea Nitrogen 19 mg/dL (7-17); Calcium 8.7 mg/dL (8.4-10.2); Carbon Dioxide 24 mmol/L (22-30); Chloride 103 mmol/L (98-107); Estimated CRCL calculation 57 ml/min; Estimated Glomerular Filt Rate > 60; Glucose 121 mg/dL (65-110); Magnesium 2.2 mg/dL (1.6-2.3); Partial Thromboplastin Time 95.8 SECONDS (22.3-36.8); Potassium 3.9 mmol/L (3.4-5.0); Sodium 133 mmol/L (137-145)
[2021-06-27] MEDS: ASPIRIN 81 MG CHEWABLE TABLET PO (08:29)
[2021-06-27] MEDS: ATORVASTATIN 40 MG TABLET 80 MG PO (08:29)
[2021-06-27] MEDS: HEPARIN SOD/D5W 100 UNITS/ML 25,000 UNITS/250 ML BAG 10 UNITS IV CONT (08:30)
[2021-06-27 08:40] LABS: Glucose Point of Care 114 mg/dl (65-105)
[2021-06-27 13:32] LABS: Glucose Point of Care 143 mg/dl (65-105)
--- NOTE | 2021-06-27 14:13 | PM.IMPN ---
Progress Note: A&P Assessment and Plan (1) Phlegmasia cerulea dolens of left lower extremity: Code(s): I80.202 - Phlebitis and thrombophlebitis of unspecified deep vessels of left lower extremity Status: Acute Assessment and Plan: Patient with an unprovoked DVT LLE. Patient presents with left lower extremity edema and discoloration. CTA of the left lower extremity showed no acute findings. Left lower extremity venous Doppler showed extensive DVT. No obvious risk factors (UTD on colonoscopy and mammograms). Patient was started on heparin drip. Case was discussed with vascular surgery and patient has been accepted at 2 facilities but we are awaiting bed availability. WBC normal now and felt the leukocytosis related to demargination then from acute infection. Plt count dropped to 149K but stable and 168K today. Hamer related to consumption. Pelvic xray showing no fracture. Clinically and symptomatically better. Continue heparin drip. Continue supportive care; continue bedrest and elevation LLE. Continue to monitor. Follow HH and plt count. Will discuss with Vascular to see if transfer still necessary. (2) MEREDITH (acute kidney injury): Code(s): N17.9 - Acute kidney failure, unspecified Status: Acute Assessment and Plan: BUN 24 and creatinine 1.6 on admission. Normal baseline renal function. She is not on diuretics at home. She has received contrast since admission. TCK normal. She was on IV fluids but stopped once Cr improved and when eating and drinking normally. Renal US normal. Cr remains normal now. Resolved. Follow. (3) Elevated troponin: Code(s): R77.8 - Other specified abnormalities of plasma proteins Status: Acute Assessment and Plan: Trop peaked at 0.062 before trending down. EKG on admission showing borderline ST-T wave changes high lateral leads. Repeat EKG showing similar findings and overall no change from a 2019 EKG. No complains of chest pain or pleuritic symptoms to suggest PE but this is the most likely etiology. Tele showing showing no acute findings. Unlikely elevated Troponins are related to ACS. Potassium and Mag level okay. Echo showing EF 65-70% with Grade I diastolic dysfunction but normal RA/RV and normal RA pressure: no pulmonary HTN. If she does have PE, probably low clot burden since asymptomatic, not hypoxic and no concerning findings on Echo. Overall, no change in treatment plan. Consider CTA chest before discharge but would treat as if PE. Continue ASA and Lipitor. (4) Severe obstructive sleep apnea: Code(s): G47.33 - Obstructive sleep apnea (adult) (pediatric) Status: Acute Assessment and Plan: Stable. Patient refusing CPAP at night. Continue CPAP at night and with naps as patient allows. (5) PVD (peripheral vascular disease): Code(s): I73.9 - Peripheral vascular disease, unspecified Status: Acute Assessment and Plan: Left lower extremity CTA showed no significant arterial disease. Continue to follow. Continue aspirin and statin. (6) Cerebrovascular accident (CVA) due to embolism of cerebral artery: Code(s): I63.40 - Cerebral infarction due to embolism of unspecified cerebral artery Status: Acute Assessment and Plan: Patient has a history of CVA. CT of the brain was performed here due to the left lower extremity weakness and this shows areas of prior infarct without acute findings. Continue aspirin and Lipitor. (7) Type 2 diabetes mellitus: Qualifiers: Diabetes mellitus mcfp insulin use: without terminal supervisor use Diabetes mellitus complication status: without complication Qualified Code(s): E11.9 - Type 2 diabetes mellitus without complications Code(s): E11.9 - Type 2 diabetes mellitus without complications Status: Acute Assessment and Plan: A1c 5.5. The patient's blood glucose was reviewed on 06/27 Glucose remains well controlled. Continue AccuCheks
[2021-06-27 17:28] LABS: Glucose Point of Care 139 mg/dl (65-105)
[2021-06-27 20:47] LABS: Glucose Point of Care 137 mg/dl (65-105)
[2021-06-28] VITALS (14 sets, daily range): BP systolic 128–149; BP diastolic 56–75; PULSE 73–92; RESP 18–20; TEMP 36–37.2; O2SAT 94–100
[2021-06-28] MEDS: HEPARIN SOD/D5W 100 UNITS/ML 25,000 UNITS/250 ML BAG 10 UNITS IV CONT (02:59)
[2021-06-28 05:26] LABS: Hematocrit 31.7 % (37.0-47.0); Hemoglobin 10.6 g/dL (12.0-15.0); Mean Corpuscular HGB Conc 33.4 g/dl (32-36); Mean Corpuscular Hemoglobin 29.4 pg (26-34); Mean Corpuscular Volume 88.1 fl (80-100); Mean Platelet Volume 11.7 fl (7.4-10.4); Platelet Count Result 183 k/mm3 (150-375); Red Cell Distribution Width 15.2 % (11.5-14.5); White Blood Count 7.2 K/mm3 (4.5-10.0)
[2021-06-28 05:47] LABS: Anion Gap 6 mmol/L (8-16); Blood Urea Nitrogen 17 mg/dL (7-17); Calcium 8.9 mg/dL (8.4-10.2); Carbon Dioxide 24 mmol/L (22-30); Chloride 105 mmol/L (98-107); Estimated CRCL calculation 64 ml/min; Estimated Glomerular Filt Rate > 60; Glucose 126 mg/dL (65-110); Potassium 3.7 mmol/L (3.4-5.0); Sodium 135 mmol/L (137-145)
[2021-06-28 08:02] LABS: Partial Thromboplastin Time 73.4 SECONDS (22.3-36.8)
[2021-06-28 08:43] LABS: Glucose Point of Care 125 mg/dl (65-105)
[2021-06-28] MEDS: ASPIRIN 81 MG CHEWABLE TABLET PO (08:49)
[2021-06-28] MEDS: ATORVASTATIN 40 MG TABLET 80 MG PO (08:49)
[2021-06-28] MEDS: MIRABEGRON 25 MG ER TABLET PO (08:50)
[2021-06-28] MEDS: metFORMIN HCL 500 MG TABLET 1000 MG PO (08:50)
--- NOTE | 2021-06-28 13:13 | PM.IMPN ---
Progress Note: A&P Assessment and Plan (1) Phlegmasia cerulea dolens of left lower extremity: Code(s): I80.202 - Phlebitis and thrombophlebitis of unspecified deep vessels of left lower extremity Status: Acute Assessment and Plan: Patient with an unprovoked DVT LLE. Patient presents with extensive left lower extremity edema, numbness and discoloration. CTA of the left lower extremity showed no acute findings. Left lower extremity venous Doppler showed extensive DVT. No obvious risk factors (UTD on colonoscopy and mammograms). Patient was started on heparin drip. Case was discussed with vascular surgery and patient was accepted at 2 facilities but no bed availability. WBC normal now and felt the leukocytosis related to demargination then from acute infection. Plt count dropped to 149K but felt related to consumption; plt count improved now. Pelvic xray showing no fracture. Clinically and symptomatically better. Spoke with vascular surgeon from [place] 06/27 and one from [place] 06/28. Discussed options and they agreed with plan to transtion patient to [facility] and increase activity as she tolerates. She will need to follow up with Vascular Surgeon in the outpatient setting in [place] after discharge. Continue heparin drip but change to [facility] today. Continue supportive care. Increase activity as toelrated. (2) MEREDITH (acute kidney injury): Code(s): N17.9 - Acute kidney failure, unspecified Status: Acute Assessment and Plan: BUN 24 and creatinine 1.6 on admission. Normal baseline renal function. She is not on diuretics at home. She has received contrast since admission. TCK normal. Renal US normal. She was on IV fluids and Cr normalized. IV fluids have been stopped adn Cr remaining normal. Resolved. (3) Elevated troponin: Code(s): R77.8 - Other specified abnormalities of plasma proteins Status: Acute Assessment and Plan: Trop peaked at 0.062 before trending down. EKG on admission showing borderline ST-T wave changes high lateral leads. Repeat EKG showing similar findings and overall no change from a 2019 EKG. Echo showing EF 65-70% with Grade I diastolic dysfunction but normal RA/RV and normal RA pressure. No complains of chest pain or pleuritic symptoms to suggest PE but this is the most likely etiology. Tele showing showing no acute findings. ACS unlikely. If she does have PE, probably low clot burden since asymptomatic, not hypoxic and no concerning findings on Echo. Overall, no change in treatment plan. Consider CTA chest before discharge but would treat as if PE anyway. Continue ASA and Lipitor. (4) Severe obstructive sleep apnea: Code(s): G47.33 - Obstructive sleep apnea (adult) (pediatric) Status: Acute Assessment and Plan: Stable. Patient refusing CPAP at night. Continue CPAP at night and with naps as patient allows. (5) PVD (peripheral vascular disease): Code(s): I73.9 - Peripheral vascular disease, unspecified Status: Acute Assessment and Plan: Left lower extremity CTA showed no significant arterial disease. Continue to follow. Continue aspirin and statin. (6) Cerebrovascular accident (CVA) due to embolism of cerebral artery: Code(s): I63.40 - Cerebral infarction due to embolism of unspecified cerebral artery Status: Acute Assessment and Plan: Patient has a history of CVA. CT of the brain was performed here due to the left lower extremity weakness and this shows areas of prior infarct without acute findings. Continue aspirin and Lipitor. (7) Type 2 diabetes mellitus: Qualifiers: Diabetes mellitus senior care insulin use: without counter attendant use Diabetes mellitus complication status: without complication Qualified Code(s): E11.9 - Type 2 diabetes mellitus without complications Code(s): E11.9 - Type 2 diabetes mellitus without complications Status: Acute Assessment and Plan: A
[2021-06-28 13:15] LABS: Glucose Point of Care 112 mg/dl (65-105)
[2021-06-28 17:15] LABS: Glucose Point of Care 127 mg/dl (65-105)
[2021-06-28] MEDS: APIXABAN 5 MG TABLET 10 MG PO (20:24)
[2021-06-28 20:53] LABS: Glucose Point of Care 132 mg/dl (65-105)
[2021-06-29] VITALS (15 sets, daily range): BP systolic 120–129; BP diastolic 62–73; PULSE 72–88; RESP 16–20; TEMP 35.8–36.8; O2SAT 94–99
[2021-06-29 05:04] LABS: Hemoglobin 9.9 g/dL (12.0-15.0); Mean Corpuscular Hemoglobin 28.9 pg (26-34); Mean Corpuscular Volume 87.7 fl (80-100); Platelet Count Result 196 k/mm3 (150-375); Red Blood Count 3.42 M/mm3 (4.2-5.4); Red Cell Distribution Width 15.3 % (11.5-14.5); White Blood Count 7.6 K/mm3 (4.5-10.0)
[2021-06-29 05:14] LABS: Anion Gap 2 mmol/L (8-16); Blood Urea Nitrogen 19 mg/dL (7-17); Calcium 8.5 mg/dL (8.4-10.2); Carbon Dioxide 27 mmol/L (22-30); Chloride 104 mmol/L (98-107); Estimated CRCL calculation 57 ml/min; Estimated Glomerular Filt Rate > 60; Glucose 132 mg/dL (65-110); Potassium 3.5 mmol/L (3.4-5.0); Sodium 133 mmol/L (137-145)
[2021-06-29] MEDS: APIXABAN 5 MG TABLET 10 MG PO ×2 (08:38→21:29)
[2021-06-29] MEDS: ASPIRIN 81 MG CHEWABLE TABLET PO (08:38)
[2021-06-29] MEDS: metFORMIN HCL 500 MG TABLET 1000 MG PO (08:38)
[2021-06-29] MEDS: MIRABEGRON 25 MG ER TABLET PO (08:39)
[2021-06-29] MEDS: ATORVASTATIN 40 MG TABLET 80 MG PO (08:39)
--- NOTE | 2021-06-29 10:26 | PM.IMPN ---
Progress Note: A&P Assessment and Plan (1) Phlegmasia cerulea dolens of left lower extremity: Code(s): I80.202 - Phlebitis and thrombophlebitis of unspecified deep vessels of left lower extremity Status: Acute Assessment and Plan: Patient with an unprovoked DVT LLE. Patient presents with extensive left lower extremity edema, numbness and discoloration. CTA of the left lower extremity showed no acute findings. Left lower extremity venous Doppler showed extensive DVT. No obvious risk factors (UTD on colonoscopy and mammograms). Patient was started on heparin drip. Case was discussed with vascular surgery and patient was accepted at 2 facilities but no bed availability. WBC normal now and felt the leukocytosis related to demargination then from acute infection. Plt count dropped to 149K but felt related to consumption; plt count improved now. Pelvic xray showing no fracture. Clinically and symptomatically better. Spoke with vascular surgeon from [place] 06/27 and one from [place] 06/28. Discussed options and they agreed with plan to transtion patient to [facility] and increase activity as she tolerates. She will need to follow up with Vascular Surgeon in the outpatient setting in [place] after discharge. Continue heparin drip and was changed to [facility] 06/28/2021. Continue supportive care. Increase activity as toelrated. (2) MEREDITH (acute kidney injury): Code(s): N17.9 - Acute kidney failure, unspecified Status: Acute Assessment and Plan: BUN 24 and creatinine 1.6 on admission. Normal baseline renal function. She is not on diuretics at home. She has received contrast since admission. TCK normal. Renal US normal. She was on IV fluids and Cr normalized. IV fluids have been stopped adn Cr remaining normal. Resolved. (3) Elevated troponin: Code(s): R77.8 - Other specified abnormalities of plasma proteins Status: Acute Assessment and Plan: Trop peaked at 0.062 before trending down. EKG on admission showing borderline ST-T wave changes high lateral leads. Repeat EKG showing similar findings and overall no change from a 2019 EKG. Echo showing EF 65-70% with Grade I diastolic dysfunction but normal RA/RV and normal RA pressure. No complains of chest pain or pleuritic symptoms to suggest PE but this is the most likely etiology. Tele showing showing no acute findings. ACS unlikely. If she does have PE, probably low clot burden since asymptomatic, not hypoxic and no concerning findings on Echo. Overall, no change in treatment plan. Consider CTA chest before discharge but would treat as if PE anyway. Continue ASA and Lipitor. (4) Severe obstructive sleep apnea: Code(s): G47.33 - Obstructive sleep apnea (adult) (pediatric) Status: Acute Assessment and Plan: Stable. Patient refusing CPAP at night. Continue CPAP at night and with naps as patient allows. (5) PVD (peripheral vascular disease): Code(s): I73.9 - Peripheral vascular disease, unspecified Status: Acute Assessment and Plan: Left lower extremity CTA showed no significant arterial disease. Continue to follow. Continue aspirin and statin. (6) Cerebrovascular accident (CVA) due to embolism of cerebral artery: Code(s): I63.40 - Cerebral infarction due to embolism of unspecified cerebral artery Status: Acute Assessment and Plan: Patient has a history of CVA. CT of the brain was performed here due to the left lower extremity weakness and this shows areas of prior infarct without acute findings. Continue aspirin and Lipitor. (7) Type 2 diabetes mellitus: Qualifiers: Diabetes mellitus half-way insulin use: without half-way use Diabetes mellitus complication status: without complication Qualified Code(s): E11.9 - Type 2 diabetes mellitus without complications Code(s): E11.9 - Type 2 diabetes mellitus without complications Status: Acute Assessment an
[2021-06-29 11:17] LABS: Hematocrit 31.2 % (37.0-47.0); Hemoglobin 10.3 g/dL (12.0-15.0)
[2021-06-29 17:02] LABS: Glucose Point of Care 108 mg/dl (65-105)
[2021-06-29 21:55] LABS: Glucose Point of Care 135 mg/dl (65-105)
[2021-06-29 22:58] LABS: Glucose Point of Care 129 mg/dl (65-105)
--- NOTE | 2021-06-29 23:07 | PC.NURSE ---
This patient, Chio Anand, was transferred to room 316- on 06/29/21 at 2245. Personal belongings sent with patient. Report given to TONIO Mejia. Appropriate documentation sent with patient.
--- NOTE | 2021-06-29 23:16 | PC.NURSE ---
PT ARRIVED FROM IMU TO [facility] BED 1 IN STABLE CONDITION.
[2021-06-30 06:00] VITALS: BP 143/72; PULSE 78; RESP 18; TEMP 36.8; O2SAT 96
[2021-06-30 07:53] LABS: Basophils Percent Auto 0.2 % (0.2-1.2); Eosinophils Absolute Auto 0.2 K/mm3 (0-0.3); Eosinophils Percent Auto 2.5 % (0-4.4); Hematocrit 31.5 % (37.0-47.0); Hemoglobin 10.4 g/dL (12.0-15.0); Immature Granulocyte Absolute 0.04 K/mm3 (0.00-0.031); Immature Granulocyte Percent A 0.5 % (0-0.5); Lymphocytes Absolute Auto 1.44 K/mm3 (0.9-3.2); Lymphocytes Percent Auto 17.1 % (18.3-44.2); Mean Corpuscular Hemoglobin 29.5 pg (26-34); Mean Corpuscular Volume 89.5 fl (80-100); Mean Platelet Volume 11.1 fl (7.4-10.4); Monocytes Absolute Auto 0.9 K/mm3 (0.1-0.6); Monocytes Percent Auto 10.5 % (2.6-8.5); Neutrophils Absolute Auto 5.8 K/mm3 (1.3-6.7); Neutrophils Percent Auto 69.2 % (45.5-73.1); Platelet Count Result 204 k/mm3 (150-375); Red Blood Count 3.52 M/mm3 (4.2-5.4); Red Cell Distribution Width 15.3 % (11.5-14.5); White Blood Count 8.4 K/mm3 (4.5-10.0)
[2021-06-30 08:16] LABS: Anion Gap 2 mmol/L (8-16); Blood Urea Nitrogen 20 mg/dL (7-17); Calcium 8.8 mg/dL (8.4-10.2); Carbon Dioxide 29 mmol/L (22-30); Chloride 102 mmol/L (98-107); Estimated CRCL calculation 71 ml/min; Estimated Glomerular Filt Rate > 60; Glucose 116 mg/dL (65-110); Potassium 3.8 mmol/L (3.4-5.0); Sodium 133 mmol/L (137-145)
[2021-06-30] MEDS: metFORMIN HCL 500 MG TABLET 1000 MG PO (08:30)
[2021-06-30] MEDS: ASPIRIN 81 MG CHEWABLE TABLET PO (08:31)
[2021-06-30] MEDS: ATORVASTATIN 40 MG TABLET 80 MG PO (08:31)
[2021-06-30] MEDS: MIRABEGRON 25 MG ER TABLET PO (08:31)
[2021-06-30] MEDS: APIXABAN 5 MG TABLET 10 MG PO (08:31)
[2021-06-30 08:54] LABS: Glucose Point of Care 150 mg/dl (65-105)
[2021-06-30 09:48] VITALS: BP 129/67; PULSE 84; RESP 20; TEMP 37; O2SAT 99
[2021-06-30 11:54] LABS: Glucose Point of Care 154 mg/dl (65-105)
--- NOTE | 2021-06-30 12:01 | PM.DS ---
DS: Admitting Diagnosis Discharge Date 06/30/2021 Admitting Diagnosis leg swelling and pain DS: Discharge Diagnosis Discharge Diagnosis (1) Phlegmasia cerulea dolens of left lower extremity: Code(s): I80.202 - Phlebitis and thrombophlebitis of unspecified deep vessels of left lower extremity Status: Acute Assessment and Plan: Patient with an unprovoked DVT LLE. Patient presents with extensive left lower extremity edema, numbness and discoloration. CTA of the left lower extremity showed no acute findings. Left lower extremity venous Doppler showed extensive DVT. No obvious risk factors (UTD on colonoscopy and mammograms). Patient was started on heparin drip. Case was discussed with vascular surgery and patient was accepted at 2 facilities but no bed availability. WBC normal now and felt the leukocytosis related to demargination then from acute infection. Plt count dropped to 149K but felt related to consumption; plt count improved now. Pelvic xray showing no fracture. Clinically and symptomatically better. Spoke with vascular surgeon from [place] 06/27 and one from [place] 06/28. Discussed options and they agreed with plan to transtion patient to [facility] and increase activity as she tolerates. She will need to follow up with Vascular Surgeon in the outpatient setting in [place] after discharge. Continue heparin drip and was changed to [facility] 06/28/2021. Continue supportive care. Increase activity as toelrated. H&H dropped down to 9.9 but recheck came back up. She did have small hematoma on her left flank that will need to be monitored (2) MEREDITH (acute kidney injury): Code(s): N17.9 - Acute kidney failure, unspecified Status: Acute Assessment and Plan: BUN 24 and creatinine 1.6 on admission. Normal baseline renal function. She is not on diuretics at home. She has received contrast since admission. TCK normal. Renal US normal. She was on IV fluids and Cr normalized. IV fluids have been stopped adn Cr remaining normal. Resolved. (3) Elevated troponin: Code(s): R77.8 - Other specified abnormalities of plasma proteins Status: Acute Assessment and Plan: Trop peaked at 0.062 before trending down. EKG on admission showing borderline ST-T wave changes high lateral leads. Repeat EKG showing similar findings and overall no change from a 2019 EKG. Echo showing EF 65-70% with Grade I diastolic dysfunction but normal RA/RV and normal RA pressure. No complains of chest pain or pleuritic symptoms to suggest PE but this is the most likely etiology. Tele showing showing no acute findings. ACS unlikely. If she does have PE, probably low clot burden since asymptomatic, not hypoxic and no concerning findings on Echo. Overall, no change in treatment plan. Consider CTA chest before discharge but would treat as if PE anyway. Continue ASA and Lipitor. (4) Severe obstructive sleep apnea: Code(s): G47.33 - Obstructive sleep apnea (adult) (pediatric) Status: Acute Assessment and Plan: Stable. Patient refusing CPAP at night. Continue CPAP at night and with naps as patient allows. (5) PVD (peripheral vascular disease): Code(s): I73.9 - Peripheral vascular disease, unspecified Status: Acute Assessment and Plan: Left lower extremity CTA showed no significant arterial disease. Continue to follow. Continue aspirin and statin. (6) Cerebrovascular accident (CVA) due to embolism of cerebral artery: Code(s): I63.40 - Cerebral infarction due to embolism of unspecified cerebral artery Status: Acute Assessment and Plan: Patient has a history of CVA. CT of the brain was performed here due to the left lower extremity weakness and this shows areas of prior infarct without acute findings. Continue aspirin and Lipitor. (7) Type 2 diabetes mellitus: Qualifiers: Diabetes mellitus complication status: without complication Diabetes mellitu
== END 2021-06-30 13:20 | disposition home health service (06) | DRG 299 ==
LOC: ANHED 19:03 → ANHIMU 21:30 → ANH3MEDSUR 06-29 23:08
PROVIDERS: Emergency Medicine; Internal Medicine; Admitting Provider Internal Medicine; Emergency Provider Emergency Medicine; PCP Internal Medicine; Visit Provider Internal Medicine
DX: I82.492 Acute embolism and thrombosis of other specified deep vein of left lower extremity (principal); I26.99 Other pulmonary embolism without acute cor pulmonale; N17.9 Acute kidney failure, unspecified; Z20.822 Contact with and (suspected) exposure to COVID-19; I10 Essential (primary) hypertension; I73.9 Peripheral vascular disease, unspecified; D64.9 Anemia, unspecified; E11.42 Type 2 diabetes mellitus with diabetic polyneuropathy; G47.33 Obstructive sleep apnea (adult) (pediatric); F32.A Depression, unspecified; S30.1XXA Contusion of abdominal wall, initial encounter; X58.XXXA Exposure to other specified factors, initial encounter; Z86.73 Personal history of transient ischemic attack (TIA), and cerebral infarction without residual deficits; Z79.82 Long term (current) use of aspirin; Z90.710 Acquired absence of both cervix and uterus
CPT/HCPCS: 36415; 70450; 71045; 73502; 73706; 76775; 80048; 80053; 80069; 81001; 82550; 82948; 83036; 83735; 84484; 85014; 85018; 85025; 85027; 85380; 85610; 85730; 93005; 93306; 93971; 96361; 96365; 96366; 97110; 97116; 97161; 97165; 99285; A9270; C9803; G0378; J1644; J3475; J7030; Q9967; U0003; U0005

== ENCOUNTER 2021-07-02 13:57 | Outpatient (CLI) | payer MEDICARE, SELFPAY ==
[2021-07-02 15:09] LABS: Add Urine Microscopic? YES; Appearance Urine Cloudy (Clear); Bilirubin Urine Negative (Negative); Blood Urine 3+ (Negative); Color Urine Red (Yellow); Glucose Urine UA Negative (Negative); Ketones Urine Negative (Negative); Leukocyte Esterase Ur 1+ LEU/UL (Negative); Mucus Urine Few /lpf; Nitrate Urine Positive (Negative); Protein Urine 2+ mg/dL (Negative); RBC Urine >75 /hpf (0-2); Specific Grav Ur 1.016 (1.001-1.035); Urobilinogen Urine Negative mg/dL (<2.0); WBC Clumps Urine Present /HPF; WBC Urine >75 /hpf
== END 2021-07-02 13:58 | disposition home or self-care (01) ==
PROVIDERS: PCP Internal Medicine; Visit Provider Internal Medicine
DX: R31.9 Hematuria, unspecified (principal)
CPT/HCPCS: 81001; 87077; 87086; 87186

== ENCOUNTER 2021-07-09 11:36 | Outpatient (CLI) | payer MEDICARE, SELFPAY ==
[2021-07-09 13:07] LABS: Add Urine Microscopic? YES; Appearance Urine Cloudy (Clear); Bacteria Urine Trace /hpf; Bilirubin Urine Negative (Negative); Blood Urine 2+ (Negative); Color Urine Amber (Yellow); Glucose Urine UA Negative (Negative); Ketones Urine Negative (Negative); Leukocyte Esterase Ur 3+ LEU/UL (Negative); Mucus Urine Heavy /lpf; Nitrate Urine Positive (Negative); Protein Urine 2+ mg/dL (Negative); RBC Urine >75 /hpf (0-2); Squamous Epithelial Cell Urine Many /hpf (Few); WBC Urine >75 /hpf
== END 2021-07-09 11:37 | disposition home or self-care (01) ==
PROVIDERS: PCP Internal Medicine; Visit Provider Internal Medicine
DX: R68.89 Other general symptoms and signs (principal)
CPT/HCPCS: 81001; 87077; 87086; 87186

== ENCOUNTER 2021-12-11 08:32 | Outpatient (CLI) | payer MEDICARE, MEDICAID, SELFPAY ==
--- NOTE | 2022-01-04 23:08 | WPDSLEEPSTUD ---
Sleep Study Date of Study: 12/11/21 Ordering Provider: Stanford Hernandez APRN Interpreting Physician: Latasha Currie MD Sleep Study Type: Polysomnogram Height: 1.63 m Weight: 84.822 kg Body Mass Index: 32.1 Neck Circumference (inches): 13.5 [place]: 8 Reason for Sleep Study Prior history of obstructive sleep apnea, patient has had weight loss would like to be retested, not currently using PAP therapy. History of DVT, acute kidney injury, hypertension, depression, diabetes, peripheral vascular disease PSG Jun 2018 showed severe ESTHELA, AHI 39.6; CPAP Titration recommended. Elevated limb movement index high. 160lbs (reported wrong on sleep study as she was 251 lbs with office visit 08/2018). CPAP Titration Jul 2018 was difficult, no pressure found. CPAP re-titration August 2018 difficult titration also; recommend APAP [id number] Sleep History Chio Anand is a 66 year old woman with complaints of occasion difficulty sleeping with a cold and gasping for breath at night. She occasionally has breathing problems at night observed by others. She occasionally sweats excessively at night. She rarely notices her heart pounding or beating irregularly at night. She occasionally falls asleep involuntarily and occasionally falls asleep while driving. She does not have loss of muscle tone with strong emotion. She does not have daytime difficulties due to excessive sleepiness. She does not feel paralyzed on waking or falling asleep. She denies having vivid dreamlike scenes upon awakening or falling asleep. She does not feel afraid to go to sleep. She does not have nightmares. She does not remember her dreams. She occasionally has racing thoughts. She occasionally feels sad, depressed and anxious. She occasionally has muscular tension. She occasionally notices parts of her body jerking and she occasionally kicks at night. She occasionally has crawling and aching feelings in her legs. She occasionally has leg pain at night. She occasionally has morning jaw pain. Normal bedtime is between 9:00 p.m. and 10:00 p.m. taking 2 hours to fall asleep waking up during the night on average for 30 minutes she wakes for the day at 7:00 a.m.. Her weekend schedule is the same. At times, she wakes in the morning between 5:00 am to 6:00 a.m.. . She wakes in the morning by 5:00 to 6:00 a.m., and she stays in bed for 2 hours after waking. She frequently has memory or concentration problems. She naps in the day. She has one episode of nocturia late in the night. Habits: Never smoked tobacco. No alcohol. [facility] Past Medical History Medical History Cerebrovascular accident (CVA) due to embolism of cerebral artery Depression Hypertension Neuropathy PVD (peripheral vascular disease) Severe obstructive sleep apnea Type 2 diabetes mellitus Surgical History Surgical History History of hysterectomy Family History Family History Mother Diabetes mellitus Family history of malignant neoplasm Other Family history of obesity Social History Social History Smoking status: Never smoker Second hand tobacco smoke exposure: No Alcohol intake: never Substance use: never Substance use type: does not use Spiritual care concerns: No Medications Home Medications Medication Instructions Recorded Confirmed Type aspirin 81 mg tablet,delayed 81 mg PO DAILY 04/27/19 01/03/22 History release (Adult Low Dose Aspirin) lancets (Lancets,Ultra Thin) #50 ea 04/27/19 01/03/22 History blood sugar diagnostic (Contour #100 ea 04/08/21 01/03/22 Rx Next Test Strips) apixaban 5 mg tablet (Eliquis) 5 mg PO BID 90 days #180 tabs 07/02/21 01/03/22 Rx metformin 500 mg tablet 500 mg PO BID #180 tabs 09/25/21 01/03/22 Rx semaglutide 3 mg tablet
[2022-01-05 00:56] VITALS: BMI 32.1
== END 2021-12-12 07:31 | disposition home or self-care (01) ==
LOC: ANHCSM 08:33
PROVIDERS: PCP Internal Medicine; Visit Provider Nurse Practitioner Family
DX: G47.33 Obstructive sleep apnea (adult) (pediatric) (principal)
CPT/HCPCS: 95810

== ENCOUNTER 2021-12-21 10:06 | Outpatient (CLI) | payer MEDICARE, MEDICAID, SELFPAY ==
--- NOTE | ~2021-12-21 | DEXA_ITS ---
Bone Density Report Name: GLORIA IYER Age: 65 Sex: Female Ethnicity: White Date of : 1955 Indication: postmenopausal; screening for osteoporosis; Referring Provider: ELBA MARTINEZ Study: Bone densitometry was performed. Exam Date: December 21, 2021 Accession number: [id number] Bone Density: Region BMD T-score Z-score Classification AP Spine(L1-L4) 1.041 -0.1 1.9 Normal Femoral Neck (Left) 0.702 -1.3 0.4 Osteopenia Total Hip (Left) 0.886 -0.5 0.9 Normal Femoral Neck (Right) 0.704 -1.3 0.4 Osteopenia Total Hip (Right) 0.903 -0.3 1.1 Normal Total Hip Mean 0.895 -0.4 1.0 Normal World Health Organization criteria for BMD impression classify patients as: Normal (T-score at or above -1.0), Osteopenia (T-score between -1.0 and -2.5), or Osteoporosis (T-score at or below -2.5). 10-year Fracture Risk(1): Major Osteoporotic Fracture 9.0% Hip Fracture 1.0% Reported Risk Factors: [place] (), Neck BMD=0.702, BMI=29.2 (1) FRAX(R) Version 3.08. Fracture probability calculated for an untreated patient. Fracture probability may be lower if the patient has received treatment. Previous Exams: Region Exam Age BMD T-score BMD Change BMD Change Date g/cm2 vs Baseline vs Previous AP Spine (L1-L4) 12/21/2021 65 1.041 -0.1 -0.076 (-6.8%) -0.076 (-6.8%) 09/14/2014 58 1.117 0.6 Total Hip(Left) 12/21/2021 65 0.886 -0.5 -0.201 (-18.5% -0.132 (-13.0% 05/26/2018 62 1.018 0.6 -0.069 (-6.3%) -0.069 (-6.3%) 09/14/2014 58 1.087 1.2 Total Hip(Right) 12/21/2021 65 0.903 -0.3 -0.178 (-16.5% -0.129 (-12.5% 05/26/2018 62 1.032 0.7 -0.049 (-4.6%) -0.049 (-4.6%) 09/14/2014 58 1.081 1.1 *Denotes significance at 95% confidence level, LSC for AP Spine = 0.022 g/cm2, LSC for Total Hip = 0.027 g/cm2 # Denotes dissimilar scan types or analysis methods Clinical Information Provided by Patient: Patient maximum height was 64.5 Menopause Age: 48 No regular weight bearing exercise Onset of menses at age 12 Number of children 2 Impression: The patient has low bone mass, based on the Left Femoral Neck T-score. The patient has an estimated ten-year risk of hip fracture of 1% and an estimated ten-year risk of major fracture of 9%, based on the WHO FRAX algorithm. The BMD for the Total Hip(Left) decreased, changing by -13.0% since the last DXA exam. Discussion: BONE DENSITY IS LOW AT ONE OR MORE SKELETAL S
--- NOTE | ~2021-12-21 | MM_ITS ---
EXAMINATION: MM screening tommy BI w marc HISTORY: . TECHNIQUE: Craniocaudal and mediolateral oblique 3-D tomosynthesis images were obtained and synthetic 2-D images were generated. CAD analysis was submitted and interpreted. COMPARISON: 10/24/2020, 08/09/2019, 05/26/2018 bilateral screening mammogram examinations BREAST PARENCHYMAL COMPOSITION: There are scattered areas of fibroglandular density. FINDINGS: Scattered bilateral benign calcifications are again noted. These are primarily secretory ca lcifications. There is no evidence of suspicious mass, calcification, or architectural distortion to suggest malignancy in either breast. There has been no suspicious interval change. IMPRESSION: 1. No mammographic evidence of malignancy. 2. Recommend routine screening mammography in one year. BI-RADS Category 2: Benign finding(s). Reviewed, dictated and finalized at location A.
== END 2021-12-21 10:07 | disposition home or self-care (01) ==
LOC: ANHIMG 10:09
PROVIDERS: PCP Internal Medicine; Visit Provider Internal Medicine
DX: Z12.31 Encounter for screening mammogram for malignant neoplasm of breast (principal); Z78.0 Asymptomatic menopausal state; M85.852 Other specified disorders of bone density and structure, left thigh; M85.851 Other specified disorders of bone density and structure, right thigh
CPT/HCPCS: 77063; 77067; 77080

== ENCOUNTER 2022-03-26 14:29 | Emergency (ER) | payer MEDICARE, SELFPAY ==
--- NOTE | ~2022-03-26 | US_ITS ---
EXAMINATION:US venous doppler LE INDICATION:Leg edema. TECHNIQUE: Multiple grayscale, color flow and Doppler images of the left lower extremity deep venous systems were obtained and reviewed. COMPARISON:Ultrasound dated 06/24/2021 FINDINGS: There is extensive deep venous thrombosis throughout the left lower extremity deep veins, l ikely chronic, without significant change from prior examination. IMPRESSION: 1: Extensive deep venous thrombosis of the left lower extremity, likely chronic.. Reviewed, dictated and finalized at location B. IMPRESSION: 1: Extensive deep venous thrombosis of the left lower extremity, likely chronic ..
[2022-03-26 15:09] VITALS: BP 118/96; PULSE 85; RESP 18; TEMP 36.7; O2SAT 100
--- NOTE | 2022-03-26 16:05 | ED.EXTPRO ---
HPI - Extremity Problem General Chief complaint: Extremity Problem,Nontraumatic Stated complaint: fall, left leg edema Time Seen by Provider: 03/26/22 15:43 Source: patient and RN notes reviewed Mode of arrival: ambulatory Limitations: no limitations History of Present Illness HPI Narrative: 66 years old white female came with pain and swelling of the left lower extremity. Patient had a diagnosis of deep vein thrombosis of the left lower extremity June 2021 been on Eliquis since, stopped by her family physician December 2021. Patient came today because she feeling pain and ache at the back of her thigh. The swelling of her left lower extremity did not change compared to June 2021 the only thing new today is the ache at the back of the thigh. She denies any trauma. Patient used to be seen by a vascular surgeon. She denies any chest pain or shortness of breath Related Data Home Medications Medication Instructions Recorded Confirmed aspirin 81 mg tablet,delayed 81 mg PO DAILY 04/27/19 01/03/22 release (Adult Low Dose Aspirin) lancets (Lancets,Ultra Thin) #50 ea 04/27/19 01/03/22 Allergies Allergy/AdvReac Type Severity Reaction Status Date / Time No Known Allergies Allergy Verified 03/26/22 15:14 Review of Systems Review of Systems: All systems reviewed & are unremarkable except as noted in HPI and below PMFSH Past Medical History Medical History Cerebrovascular accident (CVA) due to embolism of cerebral artery Depression Hypertension Neuropathy PVD (peripheral vascular disease) Severe obstructive sleep apnea Type 2 diabetes mellitus Surgical History Surgical History History of hysterectomy Family History Family History Mother Diabetes mellitus Family history of malignant neoplasm Other Family history of obesity Social History Social History Smoking status: Never smoker Second hand tobacco smoke exposure: No Alcohol intake: never Substance use: never Substance use type: does not use Spiritual care concerns: No Exam Narrative: General appearance: Well-developed, well-nourished Skin: Normal color Head: Normocephalic, nontraumatic Eyes: Clear conjunctiva ENT: Oropharynx normal, ears normal, nose normal Neck: Supple, nontender Chest and respiratory: Airway patent, no respiratory distress, no accessory muscle use Heart: Regular rate/rhythm Abdomen: Soft, nontender, no organomegaly, quiet bowel sounds Vascular: Normal peripheral pulses, normal capillary refill. Musculoskeletal: Diffuse swelling of the left lower extremity from the groin area all the way down to the ankle, slight tenderness at the thigh posteriorly, no bruises, no rash. The left thigh circumference 1-1/2 the size of the right 1 which is chronic since June 2019 through Neurologic: Alert and oriented ?3, [employer] is normal as tested, no gross motor deficit Course Course Emergency Course: The swelling of the left lower extremity has been chronic since June 2021. The only new presentation today is the ache at the back of the left thigh. Venous Doppler of the left lower extremity today showed extensive deep vein thrombosis of the left lower extremity, likely chronic. No new changes compared to the venous Doppler on June 24, 2021. My plan to restart the patient on Eliquis until she see her vascular surgeon to okay the treatment or to stop it Vital Signs Vital signs: Vital Signs Temperature 36.7 C 03/26/22 15:09 Pulse Rate
== END 2022-03-26 16:25 | disposition home or self-care (01) ==
PROVIDERS: Emergency Provider Emergency Medicine; PCP Internal Medicine
DX: I82.402 Acute embolism and thrombosis of unspecified deep veins of left lower extremity (principal); Z86.73 Personal history of transient ischemic attack (TIA), and cerebral infarction without residual deficits; F32.9 Major depressive disorder, single episode, unspecified; I10 Essential (primary) hypertension; G47.30 Sleep apnea, unspecified; E11.40 Type 2 diabetes mellitus with diabetic neuropathy, unspecified
CPT/HCPCS: 93971; 99284

== ENCOUNTER 2022-12-17 20:26 | Emergency (ER) | payer MEDICARE, MEDICAID, SELFPAY ==
--- NOTE | ~2022-12-17 | CT_ITS ---
EXAMINATION: CT brain wo con DATE: 12/17/2022 22:58 INDICATION: falls . TECHNIQUE: Computed tomography (CT) of the head was performed without intravenous contrast. The mA wa s adjusted according to patient size. Iterative reconstruction technique was employed. The dose-lengt h product was 605.33 mGy-cm. COMPARISON: 06/23/2021. FINDINGS: No acute intracranial hemorrhage or extra-axial fluid collection. No hydrocephalus, mass, or herniation. No acute ischemic infarct. Unremarkable dural venous sinus attenuation. No acute osseous abnormality. Small retention cyst or polyp in the left sphenoid sinus. Minimal opacification of the right posterio r ethmoid air cell, the remaining aerated spaces are clear. Mild atrophy and severe chronic white matter change. Atherosclerotic intracranial calcification. Bila teral lens replacements. Old bilateral basal ganglia and thalamic lacunar infarcts. Focal old left ce rebellar infarct IMPRESSION: No acute intracranial process. Reviewed, dictated and finalized at location K.
--- NOTE | ~2022-12-17 | XR_ITS ---
Portable chest x-ray Comparison: 06/23/2021 Clinical History: Weakness Findings: Lungs are clear, without focal consolidation or pleural effusion. Cardiomediastinal silho uette is stable. Bones and soft tissues are unremarkable. Impression: Clear lungs. Reviewed, dictated and finalized at location . Impression: Clear lungs.
--- NOTE | ~2022-12-17 | XR_ITS ---
Right ankle Technique: AP, oblique, and lateral views were obtained. Clinical History: Pain Findings: No acute fracture or dislocation is seen. Osseous alignment is anatomic. Plantar calcaneal spur present. Ankle mortise and other visualized joint spaces are preserved. Soft tissues are otherw ise unremarkable. Impression: No fracture or dislocation. Plantar calcaneal spur. Reviewed, dictated and finalized at location . Impression: No fracture or dislocation. Plantar calcaneal spur.
--- NOTE | ~2022-12-17 | XR_ITS ---
Right Knee Technique: AP, lateral, and oblique views were obtained. Clinical History: Pain Findings: No fracture or dislocation is seen. Osseous alignment is anatomic. There is mild spurring o f the medial joint line. Soft tissues are unremarkable. No joint effusion is seen. Impression: No fracture or dislocation. Mild spurring at the medial joint line. Reviewed, dictated and finalized at location . Impression: No fracture or dislocation. Mild spurring at the medial joint line.
[2022-12-17 20:26] VITALS: BP 182/88; PULSE 83; RESP 16; TEMP 36.6; O2SAT 98
[2022-12-17 23:00] VITALS: BP 171/81; PULSE 78; RESP 16; O2SAT 100
[2022-12-17 23:31] LABS: Basophils Percent Auto 0.4 % (0.2-1.2); Eosinophils Percent Auto 0.1 % (0-4.4); Hematocrit 41.2 % (37.0-47.0); Hemoglobin 13.8 g/dL (12.0-15.0); Immature Granulocyte Absolute 0.02 K/mm3 (0.00-0.031); Immature Granulocyte Percent A 0.2 % (0-0.5); Lymphocytes Absolute Auto 2.04 K/mm3 (0.9-3.2); Lymphocytes Percent Auto 22.9 % (18.3-44.2); Mean Corpuscular HGB Conc 33.5 g/dl (32-36); Mean Corpuscular Hemoglobin 29.7 pg (26-34); Mean Corpuscular Volume 88.8 fl (80-100); Mean Platelet Volume 11.1 fl (7.4-10.4); Monocytes Absolute Auto 0.8 K/mm3 (0.1-0.6); Monocytes Percent Auto 8.4 % (2.6-8.5); Neutrophils Absolute Auto 6.1 K/mm3 (1.3-6.7); Platelet Count Result 261 k/mm3 (150-375); Red Blood Count 4.64 M/mm3 (4.2-5.4); Red Cell Distribution Width 13.5 % (11.5-14.5); White Blood Count 8.9 K/mm3 (4.5-10.0)
[2022-12-17 23:41] LABS: Alanine Aminotransferase 43 U/L (6-35); Albumin Level 4.1 g/dL (3.5-5.1); Alkaline Phosphatase 89 U/L (38-126); Anion Gap 7 mmol/L (8-16); Aspartate Amino Transferase 217 U/L (14-36); Blood Urea Nitrogen 14 mg/dL (7-17); Calcium 9.1 mg/dL (8.4-10.2); Carbon Dioxide 31 mmol/L (22-30); Chloride 99 mmol/L (98-107); Estimated CRCL calculation 68 ml/min; Estimated Glomerular Filt Rate > 60; Glucose 95 mg/dL (65-110); Potassium 3.2 mmol/L (3.4-5.0); Sodium 137 mmol/L (137-145)
--- NOTE | 2022-12-17 23:44 | ED.GENADULT ---
HPI - General Adult General Chief complaint: Fall Stated complaint: FREQUENT FALLS Time Seen by Provider: 12/17/22 22:39 History of Present Illness HPI narrative: The patient is 66-year-old female who presents to emergency department with chief complaint of falls. Patient reports that she has prior history of a CVA and reports that she has issues with unsteady gait at times the patient today had several falls and reports pain in her right leg and the family decided to bring her to the emergency department for evaluation. Patient reports no complaints currently and reports that she feels okay. Related Data Home Medications Medication Instructions Recorded Confirmed aspirin 81 mg tablet,delayed 81 mg PO DAILY 04/27/19 04/01/22 release (Adult Low Dose Aspirin) lancets (Lancets,Ultra Thin) #50 ea 04/27/19 04/01/22 Allergies Allergy/AdvReac Type Severity Reaction Status Date / Time No Known Allergies Allergy Verified 10/08/22 07:52 Review of Systems Review of Systems: A 10 system review of systems was completed on the patient and is negative except for what is stated in the HPI. Nursing and ancillary documentation was reviewed. [facility] Past Medical History Medical History Cerebrovascular accident (CVA) due to embolism of cerebral artery Depression Hypertension Neuropathy PVD (peripheral vascular disease) Severe obstructive sleep apnea Type 2 diabetes mellitus Surgical History Surgical History History of hysterectomy Family History Family History Mother Diabetes mellitus Family history of malignant neoplasm Other Family history of obesity Social History Social History Smoking status: Never smoker Second hand tobacco smoke exposure: No Alcohol intake: never Substance use: never Substance use type: does not use Lack of Transportation: No Lack of Food: Never True Current Housing: I Have Housing Concerned About Future Housing: No Difficulty Paying Gas/Electric Bills: No Difficulty Paying for Meds: No Currently Unemployed: No Education: High School Diploma/GED Difficulty w/ Childcare or Family Care: No Spiritual care concerns: No Exam Narrative: GENERAL: Well-appearing, well-nourished, and in no acute distress. HEAD: Normocephalic, atraumatic. EYES: PERRLA and EOMI. ENT: Nares clear, no rhinorrhea or epistaxis. Mucous membranes moist. NECK: Supple. CHEST: Clear to auscultation. No respiratory distress. HEART: Regular rate and rhythm. No murmur heard. Normal peripheral pulses. ABDOMEN: Soft, nontender, nondistended, normal active bowel sounds. EXTREMITIES: Normal range of motion. No edema.Tenderness palpation right knee, right ankle SKIN: Warm, dry, no rash. NEURO: No focal deficits. Alert and oriented x3. PSYCH: Normal mood and affect. Course Vital Signs Vital signs: Vital Signs Temperature 36.6 C 12/17/22 20:26 Pulse Rate 83 12/17/22 20:26 Respiratory Rate 16 12/17/22 20:26 Blood Pressure 182/88 H 12/17/22 20:26 Pulse Oximetry 98 12/17/22 20:26 Oxygen Delivery Room Air 12/17/22 20:26 Temperature 36.6 C 12/17/22 20:26 Pulse Rate 83 12/17/22 20:26 Respiratory Rate 16 12/17/22 20:26 Blood Pressure 182/88 H 12/17/22 20:26 Pulse Oximetry 98 12/17/22 20:26 Oxygen Delivery Room Air 12/17/22 20:26 Medical Decision Making MDM Narrative Medical decision making narrative: Differential diagnosis closed fracture, contusion, electrolyte abnormality causing falls, intracranial hemorrhage, Laboratory studies were obtained on the patient which showed a white count of 8.9 hemoglobin was 13.8 electrolytes are within normal limits liver enzymes were slightly elevated
[2022-12-18 00:43] LABS: Appearance Urine Clear (Clear); Bacteria Urine 1+ /hpf; Bilirubin Urine Negative (Negative); Blood Urine 2+ (Negative); Color Urine Yellow (Yellow); Glucose Urine UA Negative (Negative); Ketones Urine Trace mg/dL (Negative); Leukocyte Esterase Ur Trace LEU/UL (Negative); Nitrate Urine Negative (Negative); Non Pathogenic Casts 0-2; Protein Urine Trace mg/dL (Negative); RBC Urine 0-2 /hpf (0-2); Squamous Epithelial Cell Urine Few /hpf (Few); WBC Urine 0-5 /hpf
--- NOTE | 2022-12-18 00:49 | PC.NURSE ---
pt ambulated with walker without assistance. pt denied any pain or difficulty. Dr. Yeni albert.
[2022-12-18 00:56] LABS: Add Urine Microscopic? YES
[2022-12-18 01:49] VITALS: BP 168/83; PULSE 75; RESP 16; O2SAT 98
== END 2022-12-18 01:51 | disposition home or self-care (01) ==
PROVIDERS: Emergency Provider Emergency Medicine; PCP Family Medicine
DX: S96.911A Strain of unspecified muscle and tendon at ankle and foot level, right foot, initial encounter (principal); S83.91XA Sprain of unspecified site of right knee, initial encounter; I69.998 Other sequelae following unspecified cerebrovascular disease; R26.89 Other abnormalities of gait and mobility; I10 Essential (primary) hypertension; E11.40 Type 2 diabetes mellitus with diabetic neuropathy, unspecified; E11.51 Type 2 diabetes mellitus with diabetic peripheral angiopathy without gangrene; I73.9 Peripheral vascular disease, unspecified; G47.33 Obstructive sleep apnea (adult) (pediatric); Z90.710 Acquired absence of both cervix and uterus; Z79.84 Long term (current) use of oral hypoglycemic drugs; Z79.82 Long term (current) use of aspirin; W19.XXXA Unspecified fall, initial encounter
CPT/HCPCS: 36415; 70450; 71045; 73562; 73610; 80053; 81001; 85025; 99284

== ENCOUNTER 2023-03-10 09:39 | Outpatient (CLI) | payer MEDICARE, MEDICAID, SELFPAY ==
--- NOTE | ~2023-03-10 | MM_ITS ---
EXAMINATION: MM screening tommy BI w marc HISTORY: Screening mammogram TECHNIQUE: Craniocaudal and mediolateral oblique 3-D tomosynthesis images were obtained and synthetic 2-D images were generated. CAD analysis was submitted and interpreted. COMPARISON: 12/21/2021, 10/24/2020, 08/09/2019 bilateral screening mammogram examinations BREAST PARENCHYMAL COMPOSITION: There are scattered areas of fibroglandular density. FINDINGS: Scattered bilateral benign calcifications are again noted. There is no evidence of suspicio us mass, calcification, or architectural distortion to suggest malignancy in either breast. There has been no suspicious interval change. IMPRESSION: 1. No mammographic evidence of malignancy. 2. Recommend routine screening mammography in one year. BI-RADS Category 2: Benign finding(s). Reviewed, dictated and finalized at location A.
== END 2023-03-10 09:40 | disposition home or self-care (01) ==
PROVIDERS: PCP Family Medicine; Visit Provider Family Medicine
DX: Z12.31 Encounter for screening mammogram for malignant neoplasm of breast (principal)
CPT/HCPCS: 77063; 77067